=== PATIENT | male | born 1965 | race Caucasian/White ===

== ENCOUNTER 2018-04-22 10:21 | Inpatient (IN) | payer OTHER ==
[2018-04-10 11:41] VITALS: BMI 28.2
[2018-04-22] MEDS ORDERED: CEFAZOLIN 2 GM in DEXTROSE 5%-WATER - 50 ML IVPB ONE (12:45)
[2018-04-22] MEDS ORDERED: oxyCODONE HCL 10 MG SUSTAINED ACTING TABLET PO ONE (12:45)
[2018-04-22] MEDS ORDERED: VANCOMYCIN 1,000 MG in DEXTROSE 5%-WATER - 250 ML IVPB ONE (12:45)
[2018-04-22] MEDS ORDERED: CELECOXIB 200 MG CAPSULE PO ONE (12:45)
[2018-04-22] MEDS ORDERED: TRANEXAMIC ACID 1000 MG/10 ML VIAL IVPUSH ONE (12:45)
[2018-04-22] MEDS ORDERED: oxyCODONE HCL 5 MG TABLET PO PRN (14:09)
[2018-04-22] MEDS ORDERED: ONDANSETRON 4 MG/2 ML VIAL IVPUSH PRN ×2 (14:09→19:04)
[2018-04-22] MEDS ORDERED: LACTATED RINGERS SOLUTION 1,000 ML IV SCH ×2 (14:15→19:15)
[2018-04-22] MEDS ORDERED: MIDAZOLAM HCL 2 MG/2 ML SINGLE DOSE VIAL ONE ×2 (15:52→16:39)
[2018-04-22] MEDS ORDERED: PROPOFOL 20 ML ONE ×4 (16:43→18:29)
[2018-04-22] MEDS ORDERED: ceFAZolin SODIUM 1 GM VIAL ONE (16:57)
[2018-04-22] MEDS ORDERED: SODIUM CHLORIDE 0.9% P/F 10 ML VIAL IJ ONE (16:57)
[2018-04-22] MEDS ORDERED: LIDOCAINE HCL/PF 2% SDV 5ML VIAL ONE (16:58)
[2018-04-22] MEDS ORDERED: BUPIVACAINE HCL/PF 2.5 MG/ML - 30 ML VIAL IJ ONE (18:07)
[2018-04-22] MEDS ORDERED: BUPIVACAINE HCL/PF 0.25% (2.5MG/ML) 10 ML VIAL IJ ONE (18:13)
[2018-04-22] MEDS ORDERED: BENZOIN/ALOE VERA/STORAX/TOLU 58 ML BOTTLE ONE (18:15)
[2018-04-22] MEDS ORDERED: KETOROLAC TROMETHAMINE 30 MG/1 ML VIAL ONE (18:28)
[2018-04-22] MEDS ORDERED: DEXAMETHASONE SOD PHOSPHATE 4 MG/1 ML VIAL ONE (18:30)
--- NOTE | 2018-04-22 18:58 | PN ---
Progress Note (short form) - Note Progress Note: 53M s/p AMOR right hip POD #0. -Pain control: as per anaesthesia team. -DVT PPx: - Mechanical: B/L [place]'s, SCD's. - Chemical: ASA EC 81mg PO BID x 6 weeks post-op. -Incentive spirometry; pulmonary toilet. -Michela-op antibiotics: Ancef x 2 doses. -PT/OT/Rehab, OOB. -WBAT RLE. -f/u post-op trial of void. -Advance diet as tolerated. -f/u AM labs. -f/u drain output. -f/u post-op AP pelvis & right hip x-rays. -Keep dressing clean & dry. -Care per medical hospitalist team. -f/u [facility] [place] office 04/30/2018; call for appointment; [phone]. -Will follow. Blake Hernandez MD (Orthopaedic Surgery).
[2018-04-22] MEDS ORDERED: MAG HYDROX/AL HYDROX/SIMETH 30 ML UNIT-DOSE CUP PO PRN (19:04)
[2018-04-22] MEDS ORDERED: MAGNESIUM HYDROX 2400MG/30ML ORAL SUSPENSION 30 ML CUP PO PRN (19:04)
--- NOTE | 2018-04-22 19:04 | OP ---
Operative Note - Note: Operative Date: 04/22/18 Pre-Operative Diagnosis: Right hip: 1. Broken hardware (wires). 2. Trochanteric bursitis. 3. Mechanical block to hip ROM Operation: Right hip: 1. Removal of hardware (wires, cables). 2. Exostectomy. 3. Trochanteric bursectomy. 4. Debridement Findings: Right trochanteric bursal reactive tissue Right hip broken wires Right hip exostoses Post-Operative Diagnosis: Same as Pre-op Surgeon: Blake Hernandez Manager Aerospace: Larry Hernandez Anesthesiologist/SUPPLY MANAGER: Gab Dey Anesthesia: General Specimens Removed: Right hip bursa reactive tissue. Broken hardware. Exostoses Estimated Blood Loss (mls): 200 Drains & Tubes with Location: 1 x deep & 1 x superficial HemoVac Fluid Volume Replaced (mls): 800 Operative Report Dictated: Yes
[2018-04-22] MEDS ORDERED: ONDANSETRON 4 MG/2 ML VIAL IVPUSH ONE (19:08)
[2018-04-22] MEDS: SENNOSIDES/DOCUSATE COMBO (SENNA PLUS) TABLET (UD) PO SCH (21:11)
[2018-04-22] MEDS: PREGABALIN 50 MG CAPSULE PO SCH (21:12)
[2018-04-22] MEDS ORDERED: ASPIRIN 325 MG TABLET PO SCH (22:00)
[2018-04-22] MEDS: oxyCODONE HCL 5 MG TABLET PO PRN (23:01)
--- NOTE | 2018-04-22 23:31 | CONSULT ---
Consult Consult Specialty:: Hospital Medicine Referred by:: Dr. Hernandez Reason for Consultation:: Medical Management - History of Present Illness Chief Complaint: R- Hip Pain History of Present Illness: This is a pleasant 53 y/o man with a PMHx of DJD, R- HIP, s/p R- HIP POD #0. Patient had elective surgery secondary to severe DJD of R- Hip. Patient reports numbness to R- leg- toes, pain to surgical site, patient reports voiding no flatulence no BM. Patient tolerated food and PO liquids. Patient denies fever, chills, cough, SOB, CP, AP, dizziness, N/V, dysuria. - History Source History Provided By: Patient Limitations to Obtaining History: No Limitations - Past Medical History Endocrine: Yes: Diabetes Mellitus - Past Surgical History Past Surgical History: Yes: Joint Replacement - Alcohol/Substance Use Hx Alcohol Use: No History of Substance Use: reports: None - Smoking History Smoking history: Never smoked Have you smoked in the past 12 months: No - Social History Usual Living Arrangement: With Spouse ADL: Family Assistance History of Recent Travel: No Home Medications - Allergies Allergies/Adverse Reactions: Allergies Allergy/AdvReac Type Severity Reaction Status Date / Time No Known Allergies Allergy Verified 04/22/18 12:09 - Home Medications Home Medications: Ambulatory Orders Canagliflozin [Invokana] 100 mg PO DAILY 04/10/18 Ibuprofen/Diphenhydramine Cit [Advil Pm Caplet] 1 each PO HS PRN 04/10/18 Multivitamin [One Daily] 1 each PO DAILY 04/10/18 [place]-3 Fatty Acids/Fish Oil [Fish Oil 1,000 mg Capsule] 1 each PO DAILY Oxycodone HCl 15 mg PO TID 04/10/18 Pregabalin [Lyrica] 100 mg PO BID 04/10/18 Sitagliptin Phosphate [Januvia] 100 mg PO DAILY 04/10/18 Vitamin E 100 unit PO BID 04/10/18 Review of Systems - Review of Systems Constitutional: reports: No Symptoms Eyes: reports: No Symptoms HENT: reports: No Symptoms Neck: reports: No Symptoms Cardiovascular: reports: No Symptoms Respiratory: reports: No Symptoms Gastrointestinal: reports: No Symptoms Genitourinary: reports: No Symptoms Breasts: reports: No Symptoms Reported Musculoskeletal: reports: Joint Pain (R- Hip), Other (R- Hip Pain) Integumentary: reports: No Symptoms Neurological: reports: No Symptoms Endocrine: reports: No Symptoms Hematology/Lymphatic: reports: No Symptoms Psychiatric: reports: No Symptoms Physical Exam Vital Signs: Vital Signs Temperature 97.6 F 04/22/18 22:38 Pulse Rate 73 04/22/18 22:38 Respiratory Rate 18 04/22/18 22:38 Blood Pressure 115/65 04/22/18 22:38 O2 Sat by Pulse Oximetry (%) 98 04/22/18 22:38 Constitutional: Yes: Well Nourished, No Distress, Calm Eyes: Yes: WNL, Conjunctiva Clear, EOM Intact HENT: Yes: WNL, Atraumatic, Normocephalic Neck: Yes: WNL, Supple, Trachea Midline Cardiovascular: Yes: WNL, Regular Rate and Rhythm, S1, S2 Respiratory: Yes: WNL, Regular, CTA Bilaterally Gastrointestinal: Yes: WNL, Normal Bowel Sounds ...Rectal Exam: Yes: Deferred Renal/: Yes: WNL Breast(s): Yes: WNL Musculoskeletal: Yes: Joint Swelling, Other (R- hip pain) Extremities: Yes: Other (dressing dry and intact, icepack, wound vac, to R- lateral aspect of Hip) Peripheral Pulses WNL: Yes Wound/Incision: Yes: Dressing Dry and Intact, Other (icepack) Neurological: Yes: WNL, Alert, Oriented, Paresthesia ...Motor Strength: LUE, LLE, RUE Psychiatric: Yes: WNL, Alert, Oriented Assessment/Plan 53 y/o man s/p R- THR POD #0 Continue current regimen Use Incentive Spirometer Monitor CBC, BMP Continue neurovascular checks DVT ppx- mechanical only,SCDs, OOB, ambulation FEN- Fluids- PO intake adequate, Electrolytes- replete as indicated, Diet: Diabetic, Low Na Dispo: We will continue to follow the patient. Thank you for this consultative opportunity. Visit type - Emergency Visit Emergency Visit: No - New Patient This patient is new to me today: Yes Date on this admission: 04/23/18 - Critical Care Critical Care patient: No
[2018-04-23] MEDS: CEFAZOLIN 1 GM/D5W 1 GM/50 ML BAG IVPB SCH ×2 (01:03→09:53)
[2018-04-23] MEDS: sitaGLIPtin PHOSPHATE 50 MG TABLET PO SCH (07:10)
[2018-04-23 08:22] LABS: HEMATOCRIT 38.2 % (35.4-49); HEMOGLOBIN 13.1 GM/dl (11.7-16.9); MCH 29.3 pg (25.7-33.7); MCHC 34.2 g/dl (32.0-35.9); MEAN CELL VOLUME 85.7 fl (80-96); MEAN PLT VOLUME 8.5 fl (7.5-11.1); PLATELET COUNT 395 K/MM3 (134-434); RBC 4.46 M/mm3 (4.00-5.60); RDW 12.4 % (11.9-15.9); WHITE BLOOD COUNT 18.9 K/mm3 (4.0-10.8)
[2018-04-23 08:32] LABS: ANION GAP 7 MMOL/L (8-16); BLOOD UREA NITROGEN 19 mg/dl (7-18); CALCIUM 8.9 mg/dl (8.4-10.2); CHLORIDE 101 mmol/L (98-107); CO2 26 mmol/L (22-28); CREATININE 0.8 mg/dl (0.6-1.3); GLUCOSE,RANDOM 176 mg/dl (74-106); POTASSIUM 4.7 mmol/L (3.5-5.1); SODIUM 134 mmol/L (136-145)
--- NOTE | 2018-04-23 08:37 | PN ---
Progress Note (short form) - Note Progress Note: POD #1 Alert. Doing well. Pain managed well via PRN meds. Voiding spontaneously. Tolerating PO diet. Denies n/v/f/c, CP or SOB AVSS. Afebrile. Gen: alert. nad RLE: dressing c/d/i. Hemovac 70mL (sanguinous). Foot warm. DP/PT 2+. Assessment: Right hip: 1. Broken hardware (wires). 2. Trochanteric bursitis. 3. Mechanical block to hip ROM Plan: POD #1 s/p Right hip: 1. Removal of hardware (wires, cables). 2. Exostectomy. 3. Trochanteric bursectomy. 4. Debridement Pain management PRN Tylenol for fever > 100.3F PT --> FWBAT Will dc hemovac in AM if ouput is < 30 mL Reg diet
[2018-04-23] MEDS: ASPIRIN 81 MG CHEWABLE TABLETS PO SCH ×2 (09:47→21:03)
[2018-04-23] MEDS: PANTOPRAZOLE 40 MG TABLET (FP) PO SCH (09:48)
[2018-04-23] MEDS: SENNOSIDES/DOCUSATE COMBO (SENNA PLUS) TABLET (UD) PO SCH ×2 (09:48→21:03)
[2018-04-23] MEDS: PREGABALIN 50 MG CAPSULE PO SCH ×2 (09:48→21:03)
[2018-04-23] MEDS: oxyCODONE HCL 5 MG TABLET PO PRN (09:53)
[2018-04-23] MEDS ORDERED: PATIENT'S OWN MEDICATION (NON-FORMULARY) (Canagliflozin [Invokana] 100 MG) PO SCH (10:00)
--- NOTE | 2018-04-23 14:41 | OP ---
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 ANESTHESIA: Spinal with conscious sedation. ANTIBIOTICS GIVEN: Kefzol 2 g, 1 g vancomycin. PROCEDURE: Patient placed in the left decubitus position, right side up with appropriate bolsters. The right lower extremity was prepped free, draped in the routine manner with betadine scrub solution, wiped with alcohol, and DuraPrep applied. In this position, the old wound was excised completely. The dissection was taken through the subcutaneous fat to the fascia. I order to gain access to the fascia and the keep the fascial layers separate, I extended the incision by 2 cm to gain entry into virgin tissue fascia. I was able then to create a plane, which was then followed right up to the level of the midsection of the gluteus medius muscle, the fascia off of the muscles, and the trochanter. A bulbous mass was noted over the greater trochanter. This was incised longitudinally and luminous green-looking fibrinous material was excised right around the greater trochanter accordingly. This was sent to the lab and also sent for culture and sensitivity. The broken hardware, particularly the 18-gauge wires were noted and these were removed with no difficulty, but the majority of the cables and remaining wires were buried deep in both. The bone was resected around them and each cable was removed appropriately. This was a tedious procedure. Once this had been performed, the bone was appropriately trimmed off the greater trochanter and over the anterior aspect of the proximal femur in order to hopefully improve his range of flexion. Preoperative flexion was 0-40 degrees, if that, 0-30 degrees. Once we had resected the anterior bone, which appeared to be blocking flexion, his flexion was improved right up to 90 degrees. The hip itself appeared well maintained clinically. All hardware removal was checked with the lateral fluoroscopic x-ray to reveal that this was correctly removed. The bone was appropriately trimmed. The tissues were thoroughly lavaged with saline and closure was as follows in 4 layers: The trochanteric bursal tissue with number 1 Vicryl, fascia 1 Vicryl, subcutaneous 1 and 2-0 Vicryl, skin with bo. DRAINAGE: Two drains; 1/8-inch anterior and 1/8-inch subfascially posteriorly reinserted. COMPLICATIONS: None. MD HERMINIA Rowland/[id number]
--- NOTE | 2018-04-23 15:26 | PN ---
Progress Note (short form) - Note Progress Note: Anesthesiology Post-op 53 y.o. man POD#1 s/p right hip exostectomy with regional/neuraxial anesthesia. Pt. awake, feels well. He does have some pain but states that the pain meds do help. Was awaiting PT during this visit. VSS. 53 y.o. man with stable post-operative course. Continue current management.
--- NOTE | 2018-04-23 15:45 | PN ---
Physical Exam: SUBJECTIVE: Patient seen and examined oob to chair. Complaining of a pain in right inguinal area and he can feel a bulge. OBJECTIVE: Vital Signs Period Temp Pulse Resp BP Sys/Romano Pulse Ox Last 24 Hr 97.6 F-98.9 F 52-73 14-19 106-131/50-73 95-99 GENERAL: The patient is awake, alert, and fully oriented, in no acute distress. LUNGS: Breath sounds equal, clear to auscultation bilaterally, no wheezes, no crackles, no accessory muscle use. HEART: Regular rate and rhythm, S1, S2 . ABDOMEN: Soft, nontender, nondistended; on standing, small protrusion right inguinal area, +tender, not retractable EXTREMITIES: lateral right thigh surgical dressing c/d/i; legs are warm, well- perfused, 2+ DP pulses; Hemovac drain sanguinous drainage NEUROLOGICAL: Cranial nerves II through XII grossly intact. Normal speech Laboratory Results - last 24 hr 04/22/18 04/23/18 04/23/18 18:53 07:30 07:30 WBC 18.9 H RBC 4.46 Hgb 13.1 Hct 38.2 MCV 85.7 MCH 29.3 MCHC 34.2 RDW 12.4 Plt Count 395 MPV 8.5 Sodium 134 L Potassium 4.7 Chloride 101 Carbon Dioxide 26 Anion Gap 7 L BUN 19 H Creatinine 0.8 Creat Clearance w eGFR > 60 POC Glucometer 78 Random Glucose 176 H Calcium 8.9 Active Medications Generic Name Dose Route Start Last Admin Trade Name Freq PRN Reason Stop Dose Admin Al Hydroxide/Mg Hydroxide 30 ml 04/22/18 19:04 Mylanta Oral Suspension - PO Q4H PRN DYSPEPSIA Aspirin 81 mg 04/23/18 10:00 04/23/18 09:47 Asa - PO 81 mg BID LINDY Administration Lactated Ringer's 1,000 mls @ 75 mls/hr 04/22/18 14:15 Lactated Ringers Solution IV ASDIR LINDY Magnesium Hydroxide 30 ml 04/22/18 19:04 Milk Of Magnesia - PO PRN PRN CONSTIPATION Non-Formulary Medication 100 mg 04/23/18 10:00 Canagliflozin [Invokana] PO DAILY LINDY Ondansetron HCl 4 mg 04/22/18 19:04 Zofran Injection IVPUSH Q6H PRN NAUSEA Oxycodone HCl 10 mg 04/22/18 14:09 04/23/18 09:53 Roxicodone - PO 10 mg Q4H PRN Administration PAIN LEVEL 6-10 Oxycodone HCl 5 mg 04/22/18 14:09 Roxicodone - PO Q4H PRN PAIN LEVEL 1-5 Pantoprazole Sodium 40 mg 04/23/18 10:00 04/23/18 09:48 Protonix - PO 40 mg DAILY LINDY Administration Pregabalin 100 mg 04/22/18 22:00 04/23/18 09:48 Lyrica - PO 100 mg BID LINDY Administration Senna/Docusate Sodium 1 tablet 04/22/18 22:00 04/23/18 09:48 Pericolace - PO 1 tablet BID LINDY Administration Sitagliptin Phosphate 100 mg 04/23/18 07:00 04/23/18 07:10 Januvia - PO 100 mg DAILY@0700 LINDY Administration ASSESSMENT/PLAN 53 year-old male with a PMH significant for IDDM and DJD of right hip. s/p right hip revision. Right hip broken hardware/trochanteric bursitis/mechanical block to hip ROM s/p removal of hardware, exostectomy, trochanteric bursectomy and debridement --POD #1 --leukocytosis 18.9k, likely reactive, will trend; afebrile --pain presently well-managed --incentive spirometry; pulmonary toilet --arabella-op antibiotics: Ancef x 2 doses complete --PT/OT/Rehab --WBAT RLE --monitor drain output; 80ccs in Hemovac Right inguinal pain --acute onset of pain in right inguinal area; on standing, possible small hernia appreciated, does not retract --US right inguinal area done pending dictation FEN Fluids: PO intake adequate Electrolytes: replete as indicated Nutrition: diabetic diet DVT prophylaxis: ASA 81mg BID x 6 weeks, SCDs, TEDs,oob, ambulation Dispo: continues to require inpatient care. Full code. f/u [facility] [place] office 04/30/2018; call for appointment; . Visit type - Emergency Visit Emergency Visit: No - New Patient This patient is new to me today: Yes Date on this admission: 04/23/18 - Critical Care Critical Care patient: No
[2018-04-23] MEDS: INSULIN SLIDING SCALE (NOVOLOG) 1 VIAL SQ SCH ×2 (18:03→21:04)
[2018-04-23] MEDS ORDERED: INSULIN (NOVOLOG) ASPART 100 UNITS/ML 10ML VIAL ONE (20:48)
[2018-04-24] MEDS: oxyCODONE HCL 5 MG TABLET PO PRN ×2 (05:12→09:02)
[2018-04-24] MEDS: sitaGLIPtin PHOSPHATE 50 MG TABLET PO SCH (06:45)
[2018-04-24] MEDS: INSULIN SLIDING SCALE (NOVOLOG) 1 VIAL SQ SCH ×2 (07:41→11:56)
[2018-04-24 08:16] LABS: HEMATOCRIT 41.5 % (35.4-49); HEMOGLOBIN 14.1 GM/dl (11.7-16.9); MCH 28.8 pg (25.7-33.7); MCHC 34.1 g/dl (32.0-35.9); MEAN CELL VOLUME 84.3 fl (80-96); MEAN PLT VOLUME 9.2 fl (7.5-11.1); PLATELET COUNT 443 K/MM3 (134-434); RBC 4.92 M/mm3 (4.00-5.60); RDW 12.6 % (11.9-15.9); WHITE BLOOD COUNT 15.9 K/mm3 (4.0-10.8)
[2018-04-24] MEDS: ASPIRIN 81 MG CHEWABLE TABLETS PO SCH (09:02)
[2018-04-24] MEDS: PANTOPRAZOLE 40 MG TABLET (FP) PO SCH (09:02)
[2018-04-24] MEDS: SENNOSIDES/DOCUSATE COMBO (SENNA PLUS) TABLET (UD) PO SCH (09:02)
[2018-04-24] MEDS: PREGABALIN 50 MG CAPSULE PO SCH (09:03)
[2018-04-24 11:26] VITALS: BP 130/60; PULSE 68; TEMP 98.6
--- NOTE | 2018-04-24 11:47 | PN ---
Progress Note (short form) - Note Progress Note: POD #2 Alert. Doing well. Pain managed well via PRN meds. Voiding spontaneously. Tolerating PO diet. Denies n/v/f/c, CP or SOB AVSS. Afebrile. Gen: alert. nad RLE: dressing taken down--> bo intact. Hemovac minimal output. Foot warm. DP/PT 2+. Assessment: Right hip: 1. Broken hardware (wires). 2. Trochanteric bursitis. 3. Mechanical block to hip ROM Plan: POD #2 s/p Right hip: 1. Removal of hardware (wires, cables). 2. Exostectomy. 3. Trochanteric bursectomy. 4. Debridement Hemovac dc'd on rounds OOB and ambulate with PT --> WBAT Pain management PRN Ice pack DVT PPx with ASA 81mg PO BID x6 weeks & TEDs/SCD (non-op leg) Incentive Spirometer Cont care per Medicine DC planning --> f/u [facility] [place] [facility] --> call for an appointment Above plan discussed with Dr. Larry Hernandez and agrees.
[2018-04-24] MEDS ORDERED: INSULIN (NOVOLOG) ASPART 100 UNITS/ML 10ML VIAL ONE (11:59)
--- NOTE | 2018-04-24 12:19 | DS ---
Physical Exam: SUBJECTIVE: Patient seen and examined OBJECTIVE: Vital Signs Period Temp Pulse Resp BP Sys/Romano Pulse Ox Last 24 Hr 98.2 F-98.9 F 64-69 18-19 102-137/54-63 95-97 PHYSICAL EXAM GENERAL: The patient is awake, alert, and fully oriented, in no acute distress. LUNGS: Breath sounds equal, clear to auscultation bilaterally, no wheezes, no crackles, no accessory muscle use. HEART: Regular rate and rhythm, S1, S2 . ABDOMEN: Soft, nontender, nondistended; on standing, small protrusion right inguinal area, +tender, soft, moveable EXTREMITIES: lateral right thigh surgical dressing c/d/i; legs are warm, well- perfused, 2+ DP pulses; Hemovac drain sanguinous drainage NEUROLOGICAL: Cranial nerves II through XII grossly intact. Normal speech LABS Laboratory Results - last 24 hr 04/23/18 04/24/18 04/24/18 20:28 06:39 08:00 WBC 15.9 H RBC 4.92 Hgb 14.1 Hct 41.5 MCV 84.3 MCH 28.8 MCHC 34.1 RDW 12.6 Plt Count 443 H MPV 9.2 POC Glucometer 201 96 04/24/18 11:49 WBC RBC Hgb Hct MCV MCH MCHC RDW Plt Count MPV POC Glucometer 187 HOSPITAL COURSE: Date of Admission:04/22/18 Date of Discharge: 04/24/18 53 year-old male with a PMH significant for IDDM and DJD of right hip. S/p right hip revision. Right hip broken hardware/trochanteric bursitis/mechanical block to hip ROM s/p removal of hardware, exostectomy, trochanteric bursectomy and debridement --POD #1 --leukocytosis likely post-surgical reactive; afebrile --pain well-managed with PO meds --arabella-op antibiotics: Ancef x 2 doses complete --participating in PT, weight-bearing Right inguinal pain --US mildly enlarged lymph node which is soft, moveable on exam; no hernia Minutes to complete discharge: 35 Discharge Summary Condition: Improved - Instructions Diet, Activity, Other Instructions: Dr. Hernandez Discharge Instructions for Hip Replacement Post Operative Instructions Physical activity Physical Therapist will come to your home for the first 5 days. You will be set up with outpatient PT at your first post-operative visit. Use assistive devices for ambulation at all times. Weight bearing as tolerated on your surgical side. Wound care Leave your surgical dressing in place. Do not change the dressing until seen by your surgeon in the office. No baths or showers. Do not submerge your incision. Do not apply any ointments or lotions to your incision. Please call the office if your dressing is soiled/dirty or is falling off. Apply Graduated Compression Stockings (TEDS) to both lower extremities-remove daily for hygiene ONLY. Diet There are no dietary restrictions. Eat healthy, high-fiber foods. Drink 6 to 8 glasses of liquid each day. This will assist in keeping your bowels are regular. Pain management Any pain prescription medication ordered should be taken as prescribed for moderate to severe pain. Do not take additional Tylenol while taking Percocet. Posterior Hip Precautions: Do not cross the leg you had surgery on over your other leg. (Do not cross your legs.)Use an elevated toilet seat. Do not sit on low chairs or beds. Use purple pillow (abductor) when lying in bed. Take Aspirin 81 mg two times a day for a total of 6 weeks to prevent blood clots. Call Dr. Hernandez for any of the following: Severe pain not relieved by medication Fever of 101 or higher Excessive bleeding or drainage on dressing Inability to urinate If you experience chest pain or shortness of breath, please seek emergency care immediately. Please call the office at to confirm your post-op appointment for the week following surgery. Referrals: Blake Hernandez MD [Staff Physician] - Disposition: VNS/HOME HEALTH CARE - Home Medications Comprehensive Discharge Medication List: Ambulatory Orders Canagliflozin [Invokana] 100 mg PO DAILY 04/10/18 Ibuprofen/Diphenhydramine Cit [Advil Pm Caplet] 1 each PO HS PRN 04/10/18 Multivitamin [One Daily] 1 each PO DAILY 04/10/18 [place]-3 Fatty Acids/Fish Oil [Fish Oil 1,000 mg Capsule] 1 each PO DAILY Oxycodone HCl 15 mg PO TID 04/10/18 Pregabalin [Lyrica] 100 mg PO BID 04/10/18 Sitagliptin Phosphate [Januvia] 100 mg PO DAILY 04/10/18 Vitamin E 100 unit PO BID 04/10/18 This patient is new to me today: No Emergency Visit: Yes ED Registration Date: 04/22/18 Care time: The patient presented to the Emergency Department on the above date and was hospitalized for further evaluation of their emergent condition. Critical Care patient: No - Discharge Referral Referred to [facility] Med P.C.: No
--- NOTE | 2018-04-27 15:16 | PATH ---
Surgical Pathology Report Patient Name: MARC SALMON Med. Rec. #: [id number] /Age/Gender: 1965 (Age: 53) / M Account: [id number] Location: [facility] MED-SURG Taken: 04/22/2018 Received: 04/22/2018 Reported: 04/27/2018 Physicians: Blake Hrenandez M.D. Specimen(s) Received A: RIGHT HIP BURSA B: RIGHT HIP SKIN SCAR C: RIGHT HIP HARDWARE Clinical History Exostosis, broken hardware, bursitis, scar reexcision right hip Final Diagnosis A. BURSA, RIGHT HIP, EXCISION: FIBROSYNOVIAL TISSUE (CONSISTENT WITH BURSA) SHOWING MARKED ACUTE NECROTIZING INFLAMMATION AND GRANULATION TISSUE FORMATION. B. SKIN, RIGHT HIP, SCAR, EXCISION: SKIN WITH SCAR. C. HARDWARE, RIGHT HIP, REMOVAL: HARDWARE, DESCRIBED (GROSS EXAMINATION ONLY). Electronically Signed Gabrielle Mcdonough M.D. Gross Description A. Received in formalin labeled "right hip bursa," is a 4.0 x 3.2 x 1.2 cm aggregate of lombardi portions of soft tissue, consistent with bursa. Scoring Machine Operator sections are submitted in one cassette. B. Received in formalin labeled "right hip skin scar," is a 20.0 x 0.7 cm lombardi, elongated portion of skin excised to a depth of 1.8 cm. The epidermal surface displays a central, linear, well-healed scar. Scoring Machine Operator sections are submitted in one cassette. C. Received fresh labeled "right hip hardware," are 9 wong metallic portions of wire ranging from 2.7-17.5 cm in length. No soft tissue is present. No sections are submitted, gross only. 04/24/201804/24/2018
== END 2018-04-24 16:50 | disposition home health service (06) | DRG 465 ==
LOC: FM/S 11:38
PROVIDERS: ADMIT Orthopaedic Surgery Orthopaedic Surgery of the Spine; ATTEND Orthopaedic Surgery Orthopaedic Surgery of the Spine
PROC: 0MBL0ZZ Excision of Right Hip Bursa and Ligament, Open Approach (ICD-10-PCS; 2018-04-22)
PROC: 0JBL0ZZ Excision of Right Upper Leg Subcutaneous Tissue and Fascia, Open Approach (ICD-10-PCS; 2018-04-22)
PROC: 0SP90JZ Removal of Synthetic Substitute from Right Hip Joint, Open Approach (ICD-10-PCS; principal; 2018-04-22 14:00)
DX: T84.010A Broken internal right hip prosthesis, initial encounter (principal); M70.61 Trochanteric bursitis, right hip; Y83.9 Surgical procedure, unspecified as the cause of abnormal reaction of the patient, or of later complication, without mention of misadventure at the time of the procedure
CPT/HCPCS: 36415; 76882; 80048; 82962; 85027; 87070; 87075; 87102; 87116; 87205; 87206; 87210; 88300-TC; 88304-TC; 94760; 97116-GP; 97162-GP

== ENCOUNTER 2019-10-06 10:25 | Inpatient (IN) | payer OTHER ==
[2019-10-06] MEDS ORDERED: ROPIVACAINE HCL 0.5% 30ML VIAL ONE (10:55)
[2019-10-06] MEDS ORDERED: EPINEPHrine/PF 1 MG/1 ML (1:1,000) AMPULE ONE (10:55)
[2019-10-06] MEDS ORDERED: MIDAZOLAM HCL 2 MG/2 ML SINGLE DOSE VIAL ONE ×2 (10:55→12:51)
[2019-10-06 11:25] VITALS: BMI 27.4
[2019-10-06] MEDS ORDERED: VANCOMYCIN 1,000 MG in DEXTROSE 5%-WATER - 250 ML IVPB ONE (12:00)
[2019-10-06] MEDS ORDERED: CEFAZOLIN 2 GM in DEXTROSE 5%-WATER - 50 ML IVPB ONE (12:00)
[2019-10-06] MEDS ORDERED: TRANEXAMIC ACID 1000 MG/10 ML VIAL IVPUSH ONE (12:00)
--- NOTE | 2019-10-06 12:08 | HP ---
CHIEF COMPLAINT: PCP: Primary Psychiatrist: HISTORY OF PRESENT ILLNESS: Recent Events: PAST MEDICAL HISTORY: PAST SURGICAL HISTORY: Social History: Smoking: Alcohol: Drugs: Allergies No Known Allergies Allergy (Verified 10/06/19 10:53) HOME MEDICATIONS: Home Medications Medication Instructions Recorded Canagliflozin [Invokana] 100 mg PO DAILY 04/10/18 Multivitamin [One Daily] 1 each PO DAILY 04/10/18 [place]-3 Fatty Acids/Fish Oil [Fish 1 each PO DAILY 04/10/18 Oil 1,000 mg Capsule] Sitagliptin Phosphate [Januvia] 100 mg PO DAILY 04/10/18 Vitamin E 100 unit PO BID 04/10/18 Gabapentin 200 mg PO BID 10/06/19 oxyCODONE HCL [Roxicodone -] 30 mg PO Q6H PRN MDD 4 10/06/19 REVIEW OF SYSTEMS CONSTITUTIONAL: Absent: fever, chills, diaphoresis, generalized weakness, malaise, loss of appetite, weight change HEENT: Absent: rhinorrhea, nasal congestion, throat pain, throat swelling, difficulty swallowing, mouth swelling, ear pain, eye pain, visual changes CARDIOVASCULAR: Absent: chest pain, syncope, palpitations, irregular heart rate, lightheadedness , peripheral edema RESPIRATORY: Absent: cough, shortness of breath, dyspnea with exertion, orthopnea, wheezing, stridor, hemoptysis GASTROINTESTINAL: Absent: abdominal pain, abdominal distension, nausea, vomiting, diarrhea, constipation, melena, hematochezia GENITOURINARY: Absent: dysuria, frequency, urgency, hesitancy, hematuria, flank pain, genital pain MUSCULOSKELETAL: Absent: myalgia, arthralgia, joint swelling, back pain, neck pain SKIN: Absent: rash, itching, pallor HEMATOLOGIC/IMMUNOLOGIC: Absent: easy bleeding, easy bruising, lymphadenopathy, frequent infections ENDOCRINE: Absent: unexplained weight gain, unexplained weight loss, heat intolerance, cold intolerance NEUROLOGIC: Absent: headache, focal weakness or paresthesias, dizziness, unsteady gait, seizure, mental status changes, bladder or bowel incontinence PHYSICAL EXAMINATION Vital Signs - 24 hr 10/06/19 10:45 Temperature 98.2 F Pulse Rate 62 Respiratory 20 Rate Blood Pressure 127/75 GENERAL: Awake, alert, and fully oriented, in no acute distress. HEAD: Normal with no signs of trauma. EYES: Pupils equal, round and reactive to light, sclera anicteric, conjunctiva clear. LUNGS: Breath sounds equal, clear to auscultation bilaterally. No wheezes, and no crackles. No accessory muscle use. HEART: Regular rate and rhythm, normal S1 and S2 ABDOMEN: Soft, nontender, not distended MUSCULOSKELETAL: Normal range of motion at all joints. No bony deformities or tenderness. No CVA tenderness. UPPER EXTREMITIES: 2+ pulses, warm, well-perfused. No cyanosis. No clubbing. No peripheral edema. LOWER EXTREMITIES: 2+ pulses, warm, well-perfused. No calf tenderness. No peripheral edema. NEUROLOGICAL: Cranial nerves II-XII intact. Normal speech. Laboratory Results - last 24 hr 10/06/19 11:06 POC Glucometer 112 ASSESSMENT/PLAN: Cardiac --no cardiac history --Revised Cardiac Risk Index for Pre-Operative Risk: 0 points, 0.4% risk of major cardiac event Pulmonary --no pulmonary history Neurological --no neurological or neurosurgical history; no history of trauma Anesthesia --no reported problems with anesthesia ECT is a low risk procedure. The relative benefits of the planned procedure outweigh the relative risks for this patient at this time.
[2019-10-06] MEDS ORDERED: VANCOMYCIN 1,000 MG VIAL (RESTRICTED TO ID ONLY) ONE (12:16)
--- NOTE | 2019-10-06 12:20 | HP ---
HISTORY OF PRESENT ILLNESS: 54 year-old male with a PMH significant for Type II NIDDM, s/p multiple right hip surgeries and heterotopic ossification of the right hip s/p right hip debridement and bone resection with Dr. Blake Hernandez. PAST MEDICAL HISTORY: Type II NIDDM PAST SURGICAL HISTORY: Multiple right hip surgeries Left hip surgery Social History: Smoking: never Alcohol: 3-6 drinks per week Drugs: no Family history: reviewed, non-contributory Allergies No Known Allergies Allergy (Verified 10/06/19 10:53) HOME MEDICATIONS: Home Medications Medication Instructions Recorded Canagliflozin [Invokana] 100 mg PO DAILY 04/10/18 Multivitamin [One Daily] 1 each PO DAILY 04/10/18 [place]-3 Fatty Acids/Fish Oil [Fish 1 each PO DAILY 04/10/18 Oil 1,000 mg Capsule] Sitagliptin Phosphate [Januvia] 100 mg PO DAILY 04/10/18 Vitamin E 100 unit PO BID 04/10/18 Gabapentin 200 mg PO BID 10/06/19 oxyCODONE HCL [Roxicodone -] 30 mg PO Q6H PRN MDD 4 10/06/19 REVIEW OF SYSTEMS CONSTITUTIONAL: Absent: fever, chills, diaphoresis, generalized weakness, malaise, loss of appetite, weight change HEENT: Absent: rhinorrhea, nasal congestion, throat pain, throat swelling, difficulty swallowing, mouth swelling, ear pain, eye pain, visual changes CARDIOVASCULAR: Absent: chest pain, syncope, palpitations, irregular heart rate, lightheadedness , peripheral edema RESPIRATORY: Absent: cough, shortness of breath, dyspnea with exertion, orthopnea, wheezing, stridor, hemoptysis GASTROINTESTINAL: Absent: abdominal pain, abdominal distension, nausea, vomiting, diarrhea, constipation, melena, hematochezia GENITOURINARY: Absent: dysuria, frequency, urgency, hesitancy, hematuria, flank pain, genital pain MUSCULOSKELETAL: Absent: myalgia, arthralgia, joint swelling, back pain, neck pain SKIN: Absent: rash, itching, pallor HEMATOLOGIC/IMMUNOLOGIC: Absent: easy bleeding, easy bruising, lymphadenopathy, frequent infections ENDOCRINE: Absent: unexplained weight gain, unexplained weight loss, heat intolerance, cold intolerance NEUROLOGIC: Absent: headache, focal weakness or paresthesias, dizziness, unsteady gait, seizure, mental status changes, bladder or bowel incontinence PSYCHIATRIC: Absent: anxiety, depression, suicidal or homicidal ideation, hallucinations. PHYSICAL EXAMINATION Vital Signs - 24 hr 10/06/19 10:45 Temperature 98.2 F Pulse Rate 62 Respiratory 20 Rate Blood Pressure 127/75 GENERAL: Awake, alert, and fully oriented, in no acute distress. HEAD: Normal with no signs of trauma. EYES: Pupils equal, round and reactive to light, extraocular movements intact, sclera anicteric, conjunctiva clear. No lid lag. EARS, NOSE, THROAT: Ears normal, nares patent, oropharynx clear without exudates. Moist mucous membranes. NECK: Normal range of motion, supple without lymphadenopathy, JVD, or masses. LUNGS: Breath sounds equal, clear to auscultation bilaterally. No wheezes, and no crackles. No accessory muscle use. HEART: Regular rate and rhythm, normal S1 and S2 without murmur, rub or gallop. ABDOMEN: Soft, nontender, not distended, normoactive bowel sounds, no guarding, no rebound, no masses. No hepatomegaly or splenomegaly. MUSCULOSKELETAL: Normal range of motion at all joints. No bony deformities or tenderness. No CVA tenderness. UPPER EXTREMITIES: 2+ pulses, warm, well-perfused. No cyanosis. No clubbing. No peripheral edema. LOWER EXTREMITIES: 2+ pulses, warm, well-perfused. No calf tenderness. No peripheral edema. NEUROLOGICAL: Cranial nerves II-XII intact. Normal speech. Normal gait. PSYCHIATRIC: Cooperative. Good eye contact. Appropriate mood and affect. SKIN: Warm, dry, normal turgor, no rashes or lesions noted, normal capillary refill. Laboratory Results - last 24 hr 10/06/19 11:06 POC Glucometer 112 Pre op Hgb 14.3 BUN 19 Cr 0.9 Intra op Ancef 2g; Vanc 1g EBL 150cc LR 2000cc UOP 500cc ASSESSMENT/PLAN 54 year-old male with a PMH significant for Type II NIDDM, s/p multiple right hip surgeries and heterotopic ossification of the right hip s/p right hip debridement and bone resection today with Dr. Blake Hernandez. Right hip debridement and bone resection --POD #0 --perioperative antibiotics per surgery --pain management per surgery --ASA 81mg BID --protonix --bowel regimen --incentive spirometry --Hemovac drain, monitor output Type II NIDDM --Novolog sliding scale coverage FEN Fluids: LR@125mL/hr Electrolytes: replete as indicated Nutrition: regular diet DVT prophylaxis: OOB, ambulation, SCDs, TEDs, ASA 81mg BID Physical therapy Dispo: continues to require inpatient care. Full code. Visit type - Emergency Visit Emergency Visit: No - New Patient This patient is new to me today: Yes Date on this admission: 10/18/19 - Critical Care Critical Care patient: No
[2019-10-06] MEDS ORDERED: PROPOFOL 20 ML ONE ×3 (12:51→15:37)
[2019-10-06] MEDS ORDERED: SUCCINYLCHOLINE CHLORIDE 200 MG/10 ML SYRINGE ONE (12:51)
[2019-10-06] MEDS ORDERED: HEPARIN NA (PORCINE) 5,000 UNITS/ML 1ML VIAL ONE (13:56)
[2019-10-06] MEDS ORDERED: EPHEDRINE SULFATE/0.9% NACL/PF 50 MG/10 ML SYRINGE NR ONE ×2 (13:57→15:11)
[2019-10-06] MEDS ORDERED: oxyCODONE HCL 5 MG TABLET PO PRN (14:46)
[2019-10-06] MEDS ORDERED: traMADol HCL 50 MG TABLET PO PRN (14:46)
[2019-10-06] MEDS ORDERED: MAG HYDROX/AL HYDROX/SIMETH 30 ML UNIT-DOSE CUP PO PRN (16:36)
[2019-10-06] MEDS ORDERED: MAGNESIUM HYDROX 2400MG/30ML ORAL SUSPENSION 30 ML CUP PO PRN (16:36)
[2019-10-06] MEDS ORDERED: ONDANSETRON 4 MG/2 ML VIAL IVPUSH PRN (16:36)
[2019-10-06] MEDS ORDERED: LACTATED RINGERS SOLUTION 1,000 ML IV SCH (16:45)
--- NOTE | 2019-10-06 16:45 | OP ---
Operative Note - Note: Operative Date: 10/06/19 Pre-Operative Diagnosis: hetertopic ossification Operation: s/p right hip debridment/resection of bone Surgeon: Blake Hernandez Senior Electrical Project Manager: Mary Perdue Anesthesiologist/SENIOR CASE MANAGER: Robert Mcdonald Anesthesia: Spinal Estimated Blood Loss (mls): 150 Drains, Volume Out (mls): 150 (mcknight) Fluid Volume Replaced (mls): 2,000 Operative Report Dictated: Yes
[2019-10-06] MEDS ORDERED: ACETAMINOPHEN 325 MG TABLET (FP) ONE (17:03)
[2019-10-06] MEDS ORDERED: ONDANSETRON 4 MG/2 ML VIAL ONE (17:11)
[2019-10-06] MEDS ORDERED: oxyCODONE HCL 5 MG TABLET ONE (17:12)
[2019-10-06] MEDS: oxyCODONE HCL 5 MG TABLET PO PRN ×2 (19:51→23:21)
[2019-10-06] MEDS: ACETAMINOPHEN 325 MG TABLET (FP) PO SCH (20:02)
[2019-10-06] MEDS: SENNOSIDES/DOCUSATE COMBO (SENNA PLUS) TABLET (UD) PO SCH (21:12)
[2019-10-06] MEDS: ASPIRIN 81 MG CHEWABLE TABLETS PO SCH (21:12)
[2019-10-06] MEDS: GABAPENTIN 100 MG CAPSULE PO SCH (21:13)
[2019-10-06] MEDS: CEFAZOLIN 1 GM/D5W 1 GM/50 ML BAG IVPB SCH (23:21)
[2019-10-07] MEDS: INSULIN SLIDING SCALE (NOVOLOG) 1 VIAL SQ SCH ×5 (01:23→21:31)
[2019-10-07] MEDS: ACETAMINOPHEN 325 MG TABLET (FP) PO SCH ×4 (02:26→21:26)
[2019-10-07] MEDS: oxyCODONE HCL 5 MG TABLET PO PRN ×6 (02:26→22:36)
[2019-10-07] MEDS ORDERED: PATIENT'S OWN MEDICATION (NON-FORMULARY) (Canagliflozin [Invokana] 100 MG) PO SCH (07:00)
[2019-10-07] MEDS: CEFAZOLIN 1 GM/D5W 1 GM/50 ML BAG IVPB SCH (07:05)
[2019-10-07 07:35] LABS: HEMATOCRIT 32.5 % (35.4-49); HEMOGLOBIN 10.7 GM/dl (11.7-16.9); MCH 25.4 pg (25.7-33.7); MCHC 32.8 g/dl (32.0-35.9); MEAN CELL VOLUME 77.3 fl (80-96); MEAN PLT VOLUME 8.3 fl (7.5-11.1); PLATELET COUNT 370 K/MM3 (134-434); RBC 4.21 M/mm3 (4.00-5.60); RDW 14.6 % (11.9-15.9); WHITE BLOOD COUNT 10.8 K/mm3 (4.0-10.8)
[2019-10-07 07:41] LABS: CALCIUM 8.2 mg/dl (8.5-10); CREATININE 0.7 mg/dl (0.55-1.3); MAGNESIUM 1.8 mg/dL (1.8-2.4)
[2019-10-07] MEDS ORDERED: KETOROLAC TROMETHAMINE 15 MG/ML VIAL IVPUSH PRN (08:09)
--- NOTE | 2019-10-07 08:12 | OP ---
DATE OF OPERATION: DATE OF DICTATION: SURGEON: Blake Hernandez MD PYTHON DJANGO DEVELOPER: BEN Garcia PREOPERATIVE DIAGNOSIS: Possible loose total hip arthroplasty with associated heterotopic ossification of the proximal femur. POSTOPERATIVE DIAGNOSIS: Heterotopic ossification of femur. OPERATION PERFORMED: 1. Scar revision. 2. Extensive proximal femoral resection, much like a wide resection, of an osteosarcoma bone tumor. 3. Arthrotomy of right hip and inspection of component implants. 4. Complex wound closure, right hip, 30 cm. ANESTHESIA: Conscious sedation with spinal anesthesia. ANTIBIOTICS GIVEN: Kefzol 2 g, vancomycin 1 g, tranexamic acid 1 g at the beginning of the procedure, and then tranexamic acid 1 g at the end of the procedure. DESCRIPTION OF PROCEDURE: The patient was correctly identified and brought to the operating room, placed supine on the operating table in the lateral decubitus position, right side up. A free drape - after cleansing the skin with Betadine scrub solution, wiped off with alcohol and DuraPrep - applied. A time-out was called. Imaging was available for intraoperative evaluation. In the position as noted, a liberal excision of the scar was performed. This was hyperpigmented tissue complicating a previously seated metal articulating construct in his right hip. The polyethylene and ceramic heads had been changed, that is revised from metal-metal to ceramic head and polyethylene cup. 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 After opening the subcutaneous tissues: All the tissues were adherent. The fascia was adherent to the underlying musculature. This was using an osteotome and sharp dissection to create the normal planes. A Charnley retractor was able to be seated appropriately. With digital palpation - after freeing the fascia extensively anteriorly but obviously taking care not to impinge on the neurovascular bundles - the greater trochanter was identified. After resection of very thickened fibroid tissue (all sent to the lab), all the fibrotic tissue which appeared to be stained with metallosis was sent to the lab for only histopathology but . The question is whether to send tissue to the metallosis lab of Dr. Aubrey Dallas in [place], who is an expert on metallosis; this will be decided with the pathologist. All tissues were sent to the Pathology Department. I exposed the entire femur proximally, subperiosteal dissected hard thickened tissue and encountered an exostosis of new born formation growing off the anterior aspect of the femur, and this was part of his major complaint of a bony block deflection which was preoperatively evaluated with a range of flexion of 0 to 30 degrees. I used an oscillating saw and rongeurs to resect a large amount of bone, combined with a sleeve of thick fibrous tissue over this, and was easily able to flex the hip beyond 90 degrees after this. An arthrotomy was performed of the hip joint itself to expose the actual articulation. The femoral stem was carefully inspected, as well as the articulation, and I elected to leave this well alone. These were fresh articulating components placed about a year ago. There appeared to be no wear of any components and this was not major component of this operation, the major component of this operation being biological not mechanical in terms of the hip replacement. The massive heterotopic ossification with a wide resection of tissue around it. This measured at least 10 to 15 cm, much donnell to a wide resection of an osteosarcoma of bone. The tissue bed was thoroughly debrided. All hemostasis achieved as best we could. We used CellSaver blood. Once this had been performed and we were happy with the improved range of motion and all the heterotopic as well as abnormal diseased tissue, not only bone but proximal soft tissue around the entire envelope of the femur, the tissues were closed as follows: The vastus lateralis was reattached to the back part of the trochanter with 2-0 FiberWire, the fascia with 2-0 FiberWire and 1 Vicryl subcutaneous, 1 and 2-0 Vicryl in 4 layers, thus completing a complex wound closure. A Hemovac was placed subfascially x1. The skin was closed with bo. A light dressing was applied. The patient tolerated the procedure well. Postop x-rays revealed excellent seated implants. No complications. MD HERMINIA Rowland/[id number]
--- NOTE | 2019-10-07 08:28 | PN ---
Physical Exam: SUBJECTIVE: Patient seen and examined OBJECTIVE: Vital Signs Period Temp Pulse Resp BP Sys/Romano Pulse Ox Last 24 Hr 97.8 F-98.7 F 62-88 14-20 107-140/54-75 96-100 GEN: A&0x3, NAD Right hip: dressing c/d/i. Soft, no evidence of hematoma. LE: no calf tenderness or swelling noted b/l. SCDs/ TEDS in place. b/l: 5/5 dorsi/plantar flexion b/l Laboratory Results - last 24 hr 10/06/19 10/06/19 10/06/19 11:06 17:16 21:07 WBC RBC Hgb Hct MCV MCH MCHC RDW Plt Count MPV Sodium Potassium Chloride Carbon Dioxide Anion Gap BUN Creatinine Est GFR (CKD-EPI)AfAm Est GFR (CKD-EPI)NonAf POC Glucometer 112 98 139 Random Glucose Calcium Magnesium 10/07/19 10/07/19 10/07/19 06:36 06:36 06:52 WBC 10.8 RBC 4.21 Hgb 10.7 L Hct 32.5 L D MCV 77.3 L MCH 25.4 L D MCHC 32.8 RDW 14.6 D Plt Count 370 MPV 8.3 Sodium 135 L Potassium 4.0 Chloride 104 Carbon Dioxide 26 Anion Gap 5 L BUN 11.0 Creatinine 0.7 Est GFR (CKD-EPI)AfAm 125.75 Est GFR (CKD-EPI)NonAf 108.50 POC Glucometer 107 Random Glucose 126 H Calcium 8.2 L Magnesium 1.8 Active Medications Generic Name Dose Route Start Last Admin Trade Name Freq PRN Reason Stop Dose Admin Acetaminophen 650 mg 10/06/19 15:00 10/07/19 02:26 Tylenol - PO 10/09/19 14:59 650 mg Q6H LINDY Administration Al Hydroxide/Mg Hydroxide 30 ml 10/06/19 16:36 Mylanta Oral Suspension - PO Q4H PRN DYSPEPSIA Aspirin 81 mg 10/06/19 22:00 10/06/19 21:12 Asa - PO 81 mg BID LINDY Administration Gabapentin 200 mg 10/06/19 22:00 10/06/19 21:13 Neurontin - PO 200 mg BID LINDY Administration Insulin Aspart 1 vial 10/06/19 22:00 10/07/19 07:02 Novolog Vial Sliding Scale - SQ Not Given ACHS [facility] Protocol Ketorolac Tromethamine 15 mg 10/07/19 08:09 Toradol Injection - IVPUSH 10/12/19 09:59 BID PRN PAIN LEVEL 1-5 Magnesium Hydroxide 30 ml 10/06/19 16:36 Milk Of Magnesia - PO PRN PRN CONSTIPATION Multivitamins/Minerals/Vitamin C 1 tab 10/07/19 10:00 Tab-A-Vit - PO DAILY LINDY Ondansetron HCl 4 mg 10/06/19 16:36 Zofran Injection IVPUSH Q6H PRN NAUSEA Oxycodone HCl 5 mg 10/06/19 14:46 Roxicodone - PO Q3H PRN PAIN LEVEL 1-5 Oxycodone HCl 10 mg 10/06/19 14:46 10/07/19 02:26 Roxicodone - PO 10 mg Q3H PRN Administration PAIN LEVEL 6-10 Pantoprazole Sodium 40 mg 10/07/19 10:00 Protonix - PO DAILY [facility] Senna/Docusate Sodium 2 tablet 10/06/19 22:00 10/06/19 21:12 Pericolace - PO 2 tablet BID [facility] Administration Tramadol HCl 50 mg 10/06/19 14:46 10/06/19 18:00 Ultram - PO 50 mg Q3H PRN Administration PAIN LEVEL 1 - 3 ASSESSMENT/PLAN: 54 year-old male with a PMH significant for Type II NIDDM, s/p multiple right hip surgeries and heterotopic ossification of the right hip s/p right hip debridement and bone resection today with Dr. Blake Hernandez. Right hip debridement and bone resection --POD #1 --perioperative antibiotics complete --pain management per surgery --ASA 81mg BID --protonix --bowel regimen --incentive spirometry --Hemovac drain, monitor output Type II NIDDM --Novolog sliding scale coverage FEN Fluids: PO intake adequate Electrolytes: replete as indicated Nutrition: regular diet DVT prophylaxis: OOB, ambulation, SCDs, TEDs, ASA 81mg BID Physical therapy Dispo: continues to require inpatient care. Full code. Visit type - Emergency Visit Emergency Visit: No - New Patient This patient is new to me today: No - Critical Care Critical Care patient: No
[2019-10-07] MEDS: MULTIVITAMINS (DAILY MVI) TABLET (FP) PO SCH (09:21)
[2019-10-07] MEDS: GABAPENTIN 100 MG CAPSULE PO SCH ×2 (09:21→21:27)
[2019-10-07] MEDS: SENNOSIDES/DOCUSATE COMBO (SENNA PLUS) TABLET (UD) PO SCH ×2 (09:21→21:26)
[2019-10-07] MEDS: PANTOPRAZOLE 40 MG TABLET PO SCH (09:21)
[2019-10-07] MEDS: ASPIRIN 81 MG CHEWABLE TABLETS PO SCH ×2 (09:21→21:26)
--- NOTE | 2019-10-07 09:50 | PN ---
Progress Note (short form) - Note Progress Note: POD#1 PT states that he is having pain this am. Usually takes 15mg oxycodone BID prn. Vital Signs Period Temp Pulse Resp BP Sys/Romano Pulse Ox Last 24 Hr 97.8 F-98.7 F 62-88 14-20 107-140/54-75 96-100 Hemovac: 20/50ml hemovac serosangrenous GEN: A&0x3, NAD Right hip: dressing c/d/i. Soft, no evidence of hematoma. LE: no calf tenderness or swelling noted b/l. SCDs/ TEDS in place. b/l: 5/5 dorsi/plantar flexion b/l CBC, BMP 10/07/19 06:36 10/07/19 06:36 A/p: 54 yo male s/p right hip bone resection/debrdement Pain management with oxycodone as needed, added toradol prn Oob/ambulate. DVT with aspiring 81 mg bid, teds/scds Diet as tolerated Stool softners to avoid constipation D/w Dr. Zuniga
--- NOTE | 2019-10-07 11:32 | PN ---
Progress Note (short form) - Note Progress Note: POD #1 s/p R hip revision under spinal. Doing well once oral pain Rx changed to baseline home pain medicine with breakthrough medications. Patient sleepy. Questions answered.
[2019-10-08] MEDS: oxyCODONE HCL 5 MG TABLET PO PRN (03:56)
[2019-10-08] MEDS: ACETAMINOPHEN 325 MG TABLET (FP) PO SCH ×2 (03:57→09:05)
[2019-10-08 06:23] VITALS: BP 111/56; PULSE 68; TEMP 98.2
[2019-10-08] MEDS: INSULIN SLIDING SCALE (NOVOLOG) 1 VIAL SQ SCH ×2 (06:38→11:05)
--- NOTE | 2019-10-08 07:27 | SURG ---
Surgery Dice Spotter Note Dice Spotter: Mary Perdue PA-C Date of Service: 10/06/19 Diagnosis: hetertopic ossification Procedure: s/p right hip debridment/resection of bone I was present for the entirety of the operative procedure. For further detail, please refer to operative report. Visit type - Case Type Case Type: Scheduled - Emergency Emergency Visit: No - New patient This patient is new to me today: Yes Date on this admission: 10/08/19
--- NOTE | 2019-10-08 07:33 | PN ---
Progress Note (short form) - Note Progress Note: ORTHOPAEDIC SURGERY POD #2 s/p right hip debridment/resection of bone (hetertopic ossification) No acute events per RN notes. Alert. Sitting in chair at bedside with legs in extension. He is getting oob and ambulating with PT Voiding spontaneously. Tolerating PO diet. Denies n/v/f/c, CP, SOB or GOMEZ. Last Vital Signs Temp Pulse Resp BP Pulse Ox 98.2 F 68 18 111/56 L 95 10/08/19 05:00 10/08/19 05:00 10/08/19 05:00 10/08/19 05:00 10/08/19 05:00 CBC, BMP 10/08/19 07:00 10/07/19 06:36 GEN: alert. nad Right Hip/LE: dressing c/d/i. no evidence of hematoma. Hemovac 45 mL (removed on rounds). All compartments soft. SCDs bilat Problem List - Problems (1) Heterotopic ossification of bone Assessment/Plan: POD #2 Continue DVT ppx OOB and ambulate with PT DVT ppx with ASA 81mg bid x 6 weeks, RIDGE/SCDs Cleared for DC home today Above plan discussed with Dr. Blake Hernandez and agrees. Code(s): M89.8X9 - OTHER SPECIFIED DISORDERS OF BONE, UNSPECIFIED SITE
[2019-10-08 07:44] LABS: HEMATOCRIT 33.9 % (35.4-49); HEMOGLOBIN 11.1 GM/dl (11.7-16.9); MCH 25.1 pg (25.7-33.7); MCHC 32.8 g/dl (32.0-35.9); MEAN CELL VOLUME 76.4 fl (80-96); MEAN PLT VOLUME 8.5 fl (7.5-11.1); PLATELET COUNT 410 K/MM3 (134-434); RBC 4.44 M/mm3 (4.00-5.60); RDW 14.7 % (11.9-15.9); WHITE BLOOD COUNT 11.8 K/mm3 (4.0-10.8)
--- NOTE | 2019-10-08 08:54 | DS ---
"Physical Exam: SUBJECTIVE: Patient seen and examined OBJECTIVE: Vital Signs Period Temp Pulse Resp BP Sys/Romano Pulse Ox Last 24 Hr 97.9 F-99.5 F 68-81 17-18 94-122/45-56 94-98 PHYSICAL EXAM GENERAL: The patient is awake, alert, and fully oriented, in no acute distress. HEAD: Normal with no signs of trauma. EYES: PERRL, extraocular movements intact, sclera anicteric, conjunctiva clear. ENT: Ears normal, nares patent, oropharynx clear without exudates, moist mucous membranes. NECK: Trachea midline, full range of motion, supple. LUNGS: Breath sounds equal, clear to auscultation bilaterally, no wheezes, no crackles, no accessory muscle use. HEART: Regular rate and rhythm, S1, S2 without murmur, rub or gallop. ABDOMEN: Soft, nontender, nondistended, normoactive bowel sounds, no guarding, no rebound, no hepatosplenomegaly, no masses. EXTREMITIES: 2+ pulses, warm, well-perfused, no edema. NEUROLOGICAL: Cranial nerves II through XII grossly intact. Normal speech, gait not observed. PSYCH: Normal mood, normal affect. SKIN: Warm, dry, normal turgor, no rashes or lesions noted. LABS Laboratory Results - last 24 hr 10/07/19 10/07/19 10/07/19 11:34 16:51 21:30 WBC RBC Hgb Hct MCV MCH MCHC RDW Plt Count MPV POC Glucometer 134 147 83 10/08/19 10/08/19 06:01 07:00 WBC 11.8 H RBC 4.44 Hgb 11.1 L Hct 33.9 L MCV 76.4 L MCH 25.1 L MCHC 32.8 RDW 14.7 Plt Count 410 MPV 8.5 POC Glucometer 116 HOSPITAL COURSE: Date of Admission:10/06/19 Date of Discharge: 10/08/19 54 year-old male with a PMH significant for Type II NIDDM, s/p multiple right hip surgeries and heterotopic ossification of the right hip s/p right hip debridement and bone resection with Dr. Blake Hernandez. Uncomplicated post-operative course. Perioperative antibiotics complete. Pain was well-managed with PO meds. Hemovac drain pulled. Voiding freely. Tolerating regular diet. Continue DVT prophylaxis with ASA 81mg BID x 6 weeks. ISTOP The Drug Utilization Report below displays all of the controlled substance prescriptions, if any, that your patient has filled in the last twelve months. The information displayed on this report is compiled from pharmacy submissions to the Department, and accurately reflects the information as submitted by the pharmacies. This report was requested by: Magnolia Cottrell | Reference #: [id number] Others' Prescriptions Patient Name: Julio Taylor Date: 1965 Address: [address] [place] [address] [address] [address] Sex: Male Rx Written Rx Dispensed Drug Quantity Days Supply Prescriber Name 09/02/2019 09/18/2019 oxycodone hcl 30 mg tablet 120 30 Shein, Blake Lim MD 09/02/2019 09/18/2019 zolpidem tartrate 10 mg tablet 30 30 Shein, Blake Lim MD 09/02/2019 09/08/2019 lyrica 100 mg capsule 90 30 Shein, Blake Lim MD 08/05/2019 08/20/2019 oxycodone hcl 30 mg tablet 120 30 Shein, Blake Lim MD 08/05/2019 08/20/2019 zolpidem tartrate 10 mg tablet 30 30 Shein, Blake Lim MD 08/05/2019 08/05/2019 lyrica 100 mg capsule 90 30 Shein, Blake Lim MD 07/08/2019 07/22/2019 oxycodone hcl 30 mg tablet 120 30 SheinBlake MS, MD 07/08/2019 07/16/2019 zolpidem tartrate 10 mg tablet 30 30 SheinBlake MS, MD 07/08/2019 07/09/2019 lyrica 100 mg capsule 90 30 SheinBlake MS, MD 06/21/2019 06/21/2019 oxycodone hcl 30 mg tablet 120 30 Shein, Blake Lim MD 06/10/2019 06/11/2019 zolpidem tartrate 10 mg tablet 30 30 Shein, Blake Lim MD 06/10/2019 06/11/2019 lyrica 100 mg capsule 90 30 Shein, Blake Lim MD 05/13/2019 05/21/2019 temazepam 30 mg capsule 30 30 SheinBlake MS, MD 05/13/2019 05/21/2019 oxycodone hcl 30 mg tablet 120 30 Shein, Blake Lim MD 05/13/2019 05/14/2019 zolpidem tartrate 10 mg tablet 30 30 Shein, Blake Lim MD 05/13/2019 05/13/2019 pregabalin 100 mg capsule 90 30 Shein, Blake Lim MD 04/08/2019 04/22/2019 oxycodone hcl 30 mg tablet 120 30 Shein, Blake Lim MD 04/08/2019 04/16/2019 pregabalin 100 mg capsule 60 30 Shein, Blake Lim MD 04/08/2019 04/16/2019 temazepam 30 mg capsule 30 30 Shein, Blake Lim MD 04/08/2019 04/12/2019 zolpidem tartrate 10 mg tablet 30 30 Shein, Blake Lim MD 03/03/2019 03/22/2019 oxycodone hcl 30 mg tablet 120 30 Shein, Blake Lim MD 03/03/2019 03/17/2019 temazepam 30 mg capsule 30 30 Shein, Blake Lim MD 03/03/2019 03/17/2019 lyrica 100 mg capsule 60 30 Shein, Blake Lim MD 02/11/2019 03/11/2019 zolpidem tartrate 10 mg tablet 30 30 Shein, Blake Lim MD 02/11/2019 02/12/2019 oxycodone hcl 30 mg tablet 120 30 Shein, Blake Lim MD 02/11/2019 02/12/2019 temazepam 30 mg capsule 30 30 Shein, Blake Lim MD 02/11/2019 02/12/2019 lyrica 100 mg capsule 60 30 Shein, Blake Lim MD 01/07/2019 02/09/2019 zolpidem tartrate 10 mg tablet 30 30 Shein, Blake Lim MD 01/07/2019 01/07/2019 temazepam 30 mg capsule 30 30 Shein, Blake Lim MD 01/07/2019 01/07/2019 oxycodone hcl 30 mg tablet 120 30 Shein, Blake Lim MD 01/07/2019 01/07/2019 lyrica 100 mg capsule 60 30 Shein, Blake Lim MD 12/09/2018 12/10/2018 lyrica 100 mg capsule 60 30 Belkys Costa (RPA- C) 12/09/2018 12/09/2018 oxycodone hcl 30 mg tablet 120 30 Belkys Costa (RPA-C) 12/09/2018 12/09/2018 temazepam 30 mg capsule 30 30 Belkys Costa ( RPA-C) 12/09/2018 12/09/2018 zolpidem tartrate 10 mg tablet 30 30 Belkys Costa (RPA-C) 11/05/2018 11/10/2018 lyrica 100 mg capsule 60 30 SheBlake cazares MS, MD 11/05/2018 11/10/2018 oxycodone hcl 30 mg tablet 120 30 Shein, Blake Lim MD 11/05/2018 11/10/2018 temazepam 30 mg capsule 30 30 SheinBlake MS, MD 10/09/2018 10/10/2018 lyrica 100 mg capsule 60 30 Shein, Blake Lim MD 10/09/2018 10/10/2018 temazepam 30 mg capsule 30 30 SheinBlake MS, MD 10/09/2018 10/10/2018 oxycodone hcl 30 mg tablet 120 30 SheinBlake MS, MD 10/09/2018 10/09/2018 zolpidem tartrate 10 mg tablet 30 30 Blake Hernandez MS, MD Minutes to complete discharge: 35 Discharge Summary Problems reviewed: Yes Reason For Visit: OSTEOARTHRITIS RIGHT HIP Condition: Improved - Instructions Diet, Activity, Other Instructions: Dr. Hernandez Discharge Instructions for Hip Replacement Post Operative Instructions Physical activity Physical Therapist will come to your home for the first 5 days. You will be set up with outpatient PT at your first post-operative visit. Use assistive devices for ambulation at all times. Weight bearing as tolerated on your surgical side. Wound care Leave your surgical dressing in place. Do not change the dressing until seen by your surgeon in the office. No baths or showers. Do not submerge your incision. Do not apply any ointments or lotions to your incision. Please call the office if your dressing is soiled/dirty or is falling off. Apply Graduated Compression Stockings (TEDS) to both lower extremities-remove daily for hygiene ONLY. Diet There are no dietary restrictions. Eat healthy, high-fiber foods. Drink 6 to 8 glasses of liquid each day. This will assist in keeping your bowels are regular. Pain management Any pain prescription medication ordered should be taken as prescribed for moderate to severe pain. Do not take additional Tylenol while taking Percocet. Posterior Hip Precautions: Do not cross the leg you had surgery on over your other leg. (Do not cross your legs.)Use an elevated toilet seat. Do not sit on low chairs or beds. Use purple pillow (abductor) when lying in bed. Take Aspirin 81 mg two times a day for a total of 6 weeks to prevent blood clots. Call Dr. Hernandez for any of the following: Severe pain not relieved by medication Fever of 101 or higher Excessive bleeding or drainage on dressing Inability to urinate If you experience chest pain or shortness of breath, please seek emergency care immediately. Please call the office at to confirm your post-op appointment for the week following surgery. This report was requested by: Mary Perdue | Reference #: [id number] 09/18/2019 oxycodone hcl 30 mg / 120 tablets / Blake Hernandez MS, MD 09/18/2019 zolpidem tartrate 10 / 30 tablets / Blake Hernandez MS, MD 09/08/2019 lyrica 100 mg / 90 capsules / Blake Hernandez MS, MD Referrals: Blake Hernandez MD [Staff Physician] - Disposition: VNS/HOME HEALTH CARE - Home Medications Comprehensive Discharge Medication List: Ambulatory Orders RX: Canagliflozin [Invokana] 100 mg PO DAILY 04/10/18 RX: Multivitamin [One Daily] 1 each PO DAILY 04/10/18 RX: [place]-3 Fatty Acids/Fish Oil [Fish Oil 1,000 mg Capsule] 1 each PO DAILY 06/18 RX: Sitagliptin Phosphate [Januvia] 100 mg PO DAILY 04/10/18 RX: Vitamin E 100 unit PO BID 04/10/18 RX: Gabapentin 200 mg PO BID 10/06/19 RX: oxyCODONE HCL [Roxicodone -] 30 mg PO Q6H PRN MDD 4 10/06/19 Prescription Drug Monitoring Program (I-STOP) results: I-STOP reviewed and no issues identified This patient is new to me today: No Emergency Visit: Yes ED Registration Date: 10/06/19 Care time: The patient presented to the Emergency Department on the above date and was hospitalized for further evaluation of their emergent condition. Critical Care patient: No - Discharge Referral Referred to [facility] No"
[2019-10-08] MEDS: SENNOSIDES/DOCUSATE COMBO (SENNA PLUS) TABLET (UD) PO SCH (10:05)
[2019-10-08] MEDS: MULTIVITAMINS (DAILY MVI) TABLET (FP) PO SCH (10:05)
[2019-10-08] MEDS: PANTOPRAZOLE 40 MG TABLET PO SCH (10:05)
[2019-10-08] MEDS: GABAPENTIN 100 MG CAPSULE PO SCH (10:05)
[2019-10-08] MEDS: ASPIRIN 81 MG CHEWABLE TABLETS PO SCH (10:15)
--- NOTE | 2019-10-11 11:47 | PATH ---
Surgical Pathology Report Patient Name: MARC SALMON Med. Rec. #: [id number] /Age/Gender: 1965 (Age: 54) / M Account: [id number] Location: [facility] MED-[facility]G Taken: 10/06/2019 Received: 10/06/2019 Reported: 10/11/2019 Physicians: Melissa Rowland ACNP Specimen(s) Received A: SKIN, HIP, RIGHT, "METALLOSIS" B: HIP, RIGHT, TENSOR FASCIA LATAE C: HIP, RIGHT, TROCHANTERIC BED D: HIP, RIGHT, BONE Clinical History Heterotopic ossification right hip Final Diagnosis A. SKIN, HIP, RIGHT, "METALLOSIS", RESECTION: SKIN AND UNDERLYING SUBCUTANEOUS TISSUE WITH MILD PATCHY SUPERFICIAL DERMAL CHRONIC INFLAMMATORY INFILTRATE. NO HISTOLOGIC EVIDENCE OF METALLOSIS IDENTIFIED. B. HIP, RIGHT, TENSOR FASCIA LATAE, RESECTION: DENSE FIBROUS TISSUE WITH PATCHY MIXED ACUTE AND CHRONIC INFLAMMATORY INFILTRATE INCLUDING NEUTROPHILS (>10 NEUTROPHILS/HPF IN 10 HPF), SCATTERED LYMPHOCYTES, HISTIOCYTES, PATCHY DEPOSITION OF HEMOSIDERIN-LADEN MACROPHAGES, AND FOCAL AREAS OF POLARIZABLE FOREIGN BODY MATERIAL (POLYETHYLENE MACROPARTICLES) WITH ASSOCIATED GIANT CELL REACTION. HETEROTOPIC OSSIFICATION PRESENT. NO HISTOLOGIC EVIDENCE OF METALLOSIS IDENTIFIED. NO DIAGNOSTIC FEATURES OF ASEPTIC, LYMPHOCYTE-DOMINATED VASCULITIS-ASSOCIATED LESION (ALVAL) IDENTIFIED.SEE COMMENT. C. HIP, RIGHT, TROCHANTERIC BED, RESECTION: DENSE FIBROUS TISSUE WITH PATCHY MIXED ACUTE AND CHRONIC INFLAMMATORY INFILTRATE INCLUDING HEMOSIDERIN LADEN MACROPHAGES. NO HISTOLOGIC EVIDENCE OF METALLOSIS IDENTIFIED. NO DIAGNOSTIC FEATURES OF ASEPTIC, LYMPHOCYTE-DOMINATED VASCULITIS-ASSOCIATED LESION (ALVAL) IDENTIFIED. SEE COMMENT. D. HIP, RIGHT, BONE, RESECTION: BONE WITH REACTIVE CHANGES. BONE MARROW WITH TRILINEAGE HEMATOPOIESIS. NO OSTEOMYELITIS IDENTIFIED. Comment: Histologic sections show patchy areas of mixed inflammatory infiltrate. In some areas, a predominant acute/neutrophilic component are present (>10 neutrophils/HPF in 10 HPF). Other areas show hemosiderin-laden macrophages, highlighted by Iron special stain. Focally there are Polarizable Birefringent foreign body material consistent with polyethylene macroparticles with associated giant cell reaction. Scattered lymphocytes, with predominant CD3+ T cells admixed with CD20+ B cells present (performed on block C). Although some sparse perivascular lymphocytic infiltrate are noted, these findings are non-specific, and not-diagnostic of ALVAL. No histologic evidence of metallosis is identified. Suggest clinical correlation. Findings relayed to Belkys PANIAGUA) from Dr. Hernandez's office, 10/11/2019. Reference: Esteban Long, Catarina Simeon, Pratibha Ramos, Saulo Parham, Natalie Wets, Aseptic Lymphocyte-Dominated Vasculitis-Associated Lesion: A Clinicopathologic Review of an Underrecognized Cause of Prosthetic Failure,[place] Journal of Clinical Pathology, Volume 134, Issue 6, August 2010, Pages [id number]. Immunohistochemical stains performed and interpreted at [facility]. Positive and negative controls (internal if applicable) show appropriate results. Electronically Signed Emily Pat M.D. Gross Description A. Received in formalin labeled "metallosis of skin right hip," is an 11.0 x 1.3 cm lombardi, elliptical, unoriented portion of an excised to depth of 1.0 cm. Stunner Animal sections are submitted in 3 cassettes. B. Received in formalin labeled "tensor fascial latae right hip" is a 4.5 x 3.8 x 2.0 cm lombardi portion of firm fibrous tissue. Stunner Animal sections are submitted in 4 cassettes. C. Received in formalin labeled "trochanteric bed right hip," are 3 lombardi portions of firm fibrous tissue ranging from 0.8 x 0.7 x 0.6 cm to 5.3 x 4.0 x 1.5 cm. Stunner Animal sections are submitted in 5 cassettes. D. Received in formalin labeled "bone right hip," is a 7.0 x 6.0 x 1.0 cm aggregate of multiple lombardi-brown portions of bone. Stunner Animal sections are submitted in 2 cassettes, following decalcification. 10/07/2019 saudi10/07/2019
== END 2019-10-08 13:04 | disposition home health service (06) | DRG 464 ==
LOC: FM/S 10:25
PROVIDERS: ADMIT Orthopaedic Surgery Orthopaedic Surgery of the Spine; ATTEND Nurse Practitioner Acute Care
PROC: 0JBL0ZZ Excision of Right Upper Leg Subcutaneous Tissue and Fascia, Open Approach (ICD-10-PCS; 2019-10-06)
PROC: 0JQL0ZZ Repair Right Upper Leg Subcutaneous Tissue and Fascia, Open Approach (ICD-10-PCS; 2019-10-06)
PROC: 0SW90JZ Revision of Synthetic Substitute in Right Hip Joint, Open Approach (ICD-10-PCS; principal; 2019-10-06 14:29)
DX: M89.8X9 Other specified disorders of bone, unspecified site (principal); T84.030A Mechanical loosening of internal right hip prosthetic joint, initial encounter; Y83.9 Surgical procedure, unspecified as the cause of abnormal reaction of the patient, or of later complication, without mention of misadventure at the time of the procedure; E11.9 Type 2 diabetes mellitus without complications
CPT/HCPCS: 36415; 73502-TC-RT-FY; 80048; 82962; 83735; 85027; 87070; 87205; 88304-TC; 88311-TC; 88341-TC; 94760; 97116-GP; 97163-GP; J1644

== ENCOUNTER 2020-03-01 11:28 | Day surgery (SDC) | payer OTHER ==
[2020-03-01 12:19] LABS: BASO % 1.4 % (0-2.0); EOS % 7.3 % (0-4.5); HEMATOCRIT 36.3 % (35.4-49); HEMOGLOBIN 11.2 GM/dL (11.7-16.9); LYMPH % 19.4 % (8-40); MCH 22.9 pg (25.7-33.7); MCHC 30.8 g/dl (32.0-35.9); MEAN CELL VOLUME 74.3 fl (80-96); MONO % 9.8 % (3.8-10.2); NEUT % 62.1 % (42.8-82.8); PLATELET COUNT 533 K/MM3 (134-434); RBC 4.88 M/mm3 (4.00-5.60); RDW 18.3 % (11.9-15.9); WHITE BLOOD COUNT 11.5 K/mm3 (4.0-10.0)
[2020-03-01 12:27] LABS: INR 1.01 (0.83-1.09); PROTHROMBIN TIME (PATIENT) 11.9 SEC (9.7-13.0)
[2020-03-01 12:30] LABS: ACTIVATED PTT 36.6 SECONDS (25.2-36.5)
[2020-03-01 12:54] LABS: ALBUMIN 3.1 g/dl (3.4-5.0); BILIRUBIN,TOTAL 0.3 mg/dL (0.2-1); BLOOD UREA NITROGEN 18.2 mg/dL (7-18); CALCIUM 7.5 mg/dL (8.5-10.1); CREATININE 0.8 mg/dL (0.55-1.3); POTASSIUM 4.7 mmol/L (3.5-5.1); TOT PROT 6.8 g/dl (6.4-8.2)
--- NOTE | 2020-03-01 13:13 | PDOC ---
History of Present Illness - General Chief Complaint: Abscess Boil Stated Complaint: SENT BY DOC Time Seen by Provider: 03/01/20 11:54 History Source: Patient Exam Limitations: No Limitations - History of Present Illness Initial Comments: 03/01/20 13:25 55yM w PMHx DM, R femur bone filing (10/06/[address] Hernandez) sent to ED by Dr Hernandez for concern for R greater trochanteric abscess requiring I&D. Pt endorses 4 weeks worsening swelling, pain, tender, warm over surgical site. Completed amoxicillin course 7d w/o relief. Denies fever/chills, n/v, intact strength/ROM/sensation to touch RLE. Past History - Medical History Allergies/Adverse Reactions: Allergies Allergy/AdvReac Type Severity Reaction Status Date / Time No Known Allergies Allergy Verified 03/01/20 11:44 Home Medications: Ambulatory Orders Canagliflozin [Invokana] 100 mg PO DAILY 04/10/18 Sitagliptin Phosphate [Januvia] 100 mg PO DAILY 04/10/18 Insulin Aspart [Novolog] 20 unit SQ HS 03/01/20 Insulin Detemir [Levemir Flextouch] 12 unit SQ TID 03/01/20 Metformin HCl [Glucophage] 500 mg PO BID 03/01/20 Anemia: No Asthma: No Cancer: No Cardiac Disorders: No CVA: No COPD: No CHF: No Dementia: No Diabetes: Yes (OVER 10 YEARS) GI Disorders: No Disorders: No HTN: No Hypercholesterolemia: No Liver Disease: No Seizures: No Thyroid Disease: No - Surgical History Abdominal Surgery: No Appendectomy: No Cardiac Surgery: No Cholecystectomy: No Lung Surgery: No Neurologic Surgery: No Orthopedic Surgery: Yes (2016 SPINAL FUSION, LAMINECTOMY PRIOR TO THAT) - Psycho-Social/Smoking History Smoking History: Never smoked Have you smoked in the past 12 months: No - Substance Abuse Hx (Audit-C & DAST Scrn) How often the patient has a drink containing alcohol: Never Score: In Men: 4 or > Positive; In Women: 3 or > Positive: 0 Screen Result (Pos requires Nsg. Audit-10AR): Negative In the last yr the pt used illegal drug/Rx for NonMed reason: No Score: Yes response is considered Positive: 0 Screen Result (Positive result requires Nsg. DAST-10): Negative Review of Systems - Review of Systems Constitutional: No: Chills, Fever HEENTM: No: Eye Pain, Nose Congestion Respiratory: No: Cough, Shortness of Breath Cardiac (ROS): No: Chest Pain, Palpitations ABD/GI: No: Abdominal Distended, Constipated, Diarrhea, Nausea, Vomiting : No: Burning, Dysuria Musculoskeletal: Yes: Joint Pain. No: Back Pain Integumentary: No: Bruising, Flushing Neurological: No: Headache, Seizure Psychiatric: No: Anxiety, Depression Endocrine: No: Intolerance to Cold, Intolerance to Heat Hematologic/Lymphatic: No: Anemia, Blood Clots *Physical Exam - Vital Signs Last Vital Signs Temp Pulse Resp BP Pulse Ox 98.5 F 77 18 132/62 98 03/01/20 11:39 03/01/20 11:39 03/01/20 11:39 03/01/20 11:39 03/01/20 11:39 - Physical Exam General Appearance: Yes: Nourished, Appropriately Dressed, Mild Distress HEENT: positive: EOMI, KAREN, Normal Voice, Hearing Grossly Normal. negative: Scleral Icterus (R), Scleral Icterus (L) Respiratory/Chest: positive: Lungs Clear, Normal Breath Sounds. negative: Chest Tender, Respiratory Distress Cardiovascular: positive: Regular Rhythm, Regular Rate, S1, S2. negative: Edema, Murmur Vascular Pulses: Dorsalis-Pedis (R): 2+, Doralis-Pedis (L): 2+ Extremity: positive: Other (R lateral femur swelling/tender/warm fluctuant mass under incision site, no discharge or bleeding) Integumentary: positive: Normal Color, Warm Neurologic: positive: Fully Oriented, Alert, Normal Mood/Affect, Normal Response, Motor Strength 5/5 (BLE full ROM, 5/5 strength), Responsive. negative: Numbness, Sensory Deficit, Confused, Disoriented ED Treatment Course - LABORATORY CBC & Chemistry Diagram: 03/01/20 12:00 03/01/20 12:00 - ADDITIONAL ORDERS Additional order review: Laboratory Results 03/01/20 03/01/20 12:00 12:00 PT with INR 11.90 INR 1.01 PTT (Actin FS) 36.6 H Sodium 136 Potassium 4.7 Chloride 101 Carbon Dioxide 29 Anion Gap 5 L BUN 18.2 H Creatinine 0.8 Est GFR (CKD-EPI)AfAm 118.20 Est GFR (CKD-EPI)NonAf 101.99 Random Glucose 246 H Calcium 7.5 L Total Bilirubin 0.3 AST 19 ALT 16 Alkaline Phosphatase 164 H Total Protein 6.8 Albumin 3.1 L 03/01/20 12:00 RBC 4.88 MCV 74.3 L MCHC 30.8 L RDW 18.3 H MPV 8.0 Neutrophils % 62.1 Lymphocytes % 19.4 Monocytes % 9.8 Eosinophils % 7.3 H Basophils % 1.4 Medical Decision Making - Medical Decision Making 03/01/20 13:46 EKG - NSR, incomplete RBBB, LAD, HR 68, QTc 431, no ST changes CXR - no acute pathology WBC 11, BG 246 --- 55yM w PMHx DM, R femur bone filing (10/06/[address] Hernandez) sent to ED by Dr Hernandez for concern for R greater trochanteric abscess requiring I&D. RLE neurovascular intact. Given [address] Hernandez, will bring to OR today Admitted m/s Dr Hernandez for R greater trochanteric abscess requiring I&D. Discharge - Discharge Information Problems reviewed: Yes Clinical Impression/Diagnosis: Abscess Condition: Good - Follow up/Referral - Patient Discharge Instructions - Post Discharge Activity
[2020-03-01] MEDS ORDERED: morphine CARPU-JECT 4 MG/1 ML DISP.SYRIN IVPUSH ONE ×2 (14:09→17:31)
--- NOTE | 2020-03-01 14:09 | EKG ---
Test Reason : Blood Pressure : / mmHG Vent. Rate : 068 BPM Atrial Rate : 068 BPM P-R Int : 162 ms QRS Dur : 092 ms QT Int : 406 ms P-R-T Axes : 058 -30 038 degrees QTc Int : 431 ms NORMAL SINUS RHYTHM POSSIBLE LEFT ATRIAL ENLARGEMENT LEFT AXIS DEVIATION INCOMPLETE RIGHT BUNDLE BRANCH BLOCK ABNORMAL ECG NO PREVIOUS ECGS AVAILABLE Confirmed by Padilla Wilder MD ([id number]) on 03/01/2020 2:09:19 PM Referred By: Confirmed By:Padilla Wilder MD
--- NOTE | 2020-03-01 14:23 | PDOC ---
Documentation entered by Cristy Thompson SCRIBE, acting as scribe for Rhianna Sands MD. Rhianna Sands MD: This documentation has been prepared by the Jay juárez Adrianna, SCRIBE, under my direction and personally reviewed by me in its entirety. I confirm that the documentation accurately reflects all work, treatment, procedures, and medical decision making performed by me. Attending Attestation - Resident Resident Name: JamesonMiguel Angel - ED Attending Attestation I have performed the following: I have examined & evaluated the patient, The case was reviewed & discussed with the resident, I agree w/resident's findings & plan, Exceptions are as noted - HPI HPI: The patient is a 55 year old male, with a significant PMH of NIDDM, s/p multiple right hip surgeries and heterotopic ossification of the right hip s/p right hip debridement and bone resection, who presents to the ED for evaluation of abscess for 4 weeks. Patient complains of a progressively worsening abscess to the right greater trochanter. He endorses pain, swelling, warmth, and tenderness to his surgical site. Patient completed a 7 day course of amoxicillin without any relief of symptoms. Patient was advised by his orthopedic surgeon to come to the ED for admission for an I&D. Denies fever, chills, nausea, vomit, chest pain, SOB, cough. Allergies: NKA, NKDA Surgical History: Spinal fusion, laminectomy, multiple right hip surgeries, right hip debridement and bone resection Social History: No toxic habits Orthopedic surgeon: Dr. Hernandez - Physicial Exam PE: General: well appearing HEENT: NCAT Extremities: +surgical scar R hip with +ttp and induration with some erythema, warm and well perfused Neuro: awake, alert, responds appropriately to questions, speech fluent, face sy mmetric, no focal deficits - Medical Decision Making 55 yo M sent by his orthopedist for admission for I+D of hip abscess in the OR, non-toxic appearing on exam. Plan: -labs -pain control as needed -IVF -NPO -pt. scheduled for the OR today This clinical encounter is taking place during a federal and state health care emergency attributable to the novel [place] Virus pandemic. The [place] of the Department of Health and Human Services has declared, pursuant to the Public Health Service Act 319F-3 (42 U.S.C. 247d-6d), that a covered persons activities related to medical countermeasures against COVID-19 will be immune from liability under Federal and State law. Discharge - Discharge Information Problems reviewed: Yes Clinical Impression/Diagnosis: Abscess Condition: Improved Disposition: HOME - Follow up/Referral - Patient Discharge Instructions - Post Discharge Activity
[2020-03-01] MEDS ORDERED: morphine SULFATE 4 MG/ML VIAL ONE (14:26)
[2020-03-01] MEDS ORDERED: GABAPENTIN 100 MG CAPSULE PO ONE (16:04)
[2020-03-01] MEDS ORDERED: GABAPENTIN 100 MG CAPSULE ONE ×2 (16:07→16:09)
[2020-03-01] MEDS ORDERED: ACETAMINOPHEN 1000 MG/100 ML VIAL (NON FORMULARY) IVPB ONE (16:30)
[2020-03-01] MEDS ORDERED: METOCLOPRAMIDE HCL INJECTION 10 MG/2 ML VIAL IVPB ONE (18:48)
[2020-03-01] MEDS ORDERED: SODIUM CHLORIDE 0.9% 500 ML INFUS.BAG IV ONE (18:50)
[2020-03-01] MEDS ORDERED: MIDAZOLAM HCL 2 MG/2 ML SINGLE DOSE VIAL ONE (19:49)
--- NOTE | 2020-03-01 20:30 | PN ---
Progress Note (short form) - Note Progress Note: Patient status post Revision THR 2014 Giancarlo Yepezdebora Problem R heterotopic ossification resected April 2018 Presents today with an Acute Abscess R greater Trochanter Admitted through the ER for I and D CoMorbidity Type 2 Diabetic 10yrs Insulin dependant with metformin for review by physician for change of meds. Rest of med history negative Allergies Nil Past Surgeries Hip Bilateral THR Lumbar spine fusion O/E Not distressed except severe tenderness over the R greater trochanter No signs of toxicity Apyrexial CVS No tachycardia Perfusing normally RESP Clear ABD Soft NEURO Fully intact RES Serology As per chart Slight rise in WCC No Lshift or toxic granulation. PLAN For I and D under [place] Perioperative antibiotics Analgesia
[2020-03-01] MEDS ORDERED: ceFAZolin SODIUM 1 GM VIAL IVPB ONE (20:50)
[2020-03-01] MEDS ORDERED: ceFAZolin SODIUM 1 GM VIAL ONE (20:55)
[2020-03-01] MEDS ORDERED: DEXAMETHASONE SOD PHOSPHATE 4 MG/1 ML VIAL ONE (21:06)
[2020-03-01] MEDS ORDERED: LACTATED RINGERS SOLUTION 1,000 ML IV SCH ×2 (21:30→22:30)
[2020-03-01] MEDS ORDERED: ONDANSETRON 4 MG/2 ML VIAL IVPUSH PRN ×2 (21:30→22:26)
[2020-03-01] MEDS: KETOROLAC TROMETHAMINE 30 MG/1 ML VIAL IVPUSH ONE ×2 (21:40→23:31)
--- NOTE | 2020-03-01 22:00 | OP ---
Operative Note - Note: Operative Date: 03/01/20 Pre-Operative Diagnosis: Draining right hip wound Operation: Incision, drainage, irrigation, debridement right hip wound Findings: Superficial wound cavity [id number] Walled off No intra-articular communication No bony communication Post-Operative Diagnosis: Same as Pre-op Surgeon: Blake Hernandez Anesthesiologist/SPOOLING OPERATOR: Lee Taylor Anesthesia: General Specimens Removed: Right hip wound specimen, tissue Estimated Blood Loss (mls): 30 Drains & Tubes with Location: 1 x superficial HemoVac Fluid Volume Replaced (mls): 1,000 Operative Report Dictated: Yes
--- NOTE | 2020-03-01 22:11 | CONSULT ---
Consultation: REQUESTING PROVIDER: Dr. Hernandez CONSULT REQUEST: We have been asked to medically evaluate this patient for DM management HISTORY OF PRESENT ILLNESS: 55 year old male with PMH of DM, R femur bone filing (10/06/[address] Hernandez) was referred to the ER by Dr Hernandez for concern for R greater trochanteric I&D for a developing abscess, after patient was found to have worsening swelling and pain in the area. Recently completed amoxicillin course 7d with no improvement in symptoms. Reports 12 hip replacements in the past with spinal surgery as well. Currently on Metformin 500mg BID, Canagliflozin 100, Januvia 100, Novolog 10mg TID, and Levemir 20mg HS at home. Began taking insulin 1 year ago, sees an help desk specialist once a year, visited a department chair 6 months ago but does not follow up regularly. Does not remember if he has had an HbA1c, but states that he sees his PCP regularly, also has an Special Needs Nanny who he saw nearly 1 year ago. REVIEW OF SYSTEMS: CONSTITUTIONAL: Absent: fever, chills, diaphoresis, generalized weakness, malaise, loss of appetite, weight change HEENT: Absent: rhinorrhea, nasal congestion, throat pain, throat swelling, difficulty swallowing, mouth swelling, ear pain, eye pain, visual changes CARDIOVASCULAR: Absent: chest pain, syncope, palpitations, irregular heart rate, lightheadedness, peripheral edema RESPIRATORY: Absent: cough, shortness of breath, dyspnea with exertion, orthopnea, wheezing, stridor, hemoptysis GASTROINTESTINAL: Absent: abdominal pain, abdominal distension, nausea, vomiting, diarrhea, constipation, melena, hematochezia GENITOURINARY: Absent: dysuria, frequency, urgency, hesitancy, hematuria, flank pain, genital pain MUSCULOSKELETAL: Absent: myalgia, arthralgia, joint swelling, back pain, neck pain SKIN: Absent: rash, itching, pallor HEMATOLOGIC/IMMUNOLOGIC: Absent: easy bleeding, easy bruising, lymphadenopathy, frequent infections ENDOCRINE: Absent: unexplained weight gain, unexplained weight loss, heat intolerance, cold intolerance NEUROLOGIC: Absent: headache, focal weakness or paresthesias, dizziness, unsteady gait, seizure, mental status changes, bladder or bowel incontinence PSYCHIATRIC: Absent: anxiety, depression, suicidal or homicidal ideation, hallucinations. PHYSICAL EXAMINATION Vital Signs - 24 hr 03/01/20 03/01/2020 11:39 13:59 16:17 Temperature 98.5 F 98.3 F Pulse Rate 77 Pulse Rate [ 67 73 Right Radial] Respiratory 18 18 Rate Blood Pressure 132/62 Blood Pressure 116/61 121/63 [Left Arm] O2 Sat by Pulse 98 97 96 Oximetry (%) 03/01/20 03/01/20 03/01/20 18:07 19:39 21:25 Temperature 97.9 F 98.3 F Pulse Rate 78 Pulse Rate [ 68 69 Right Radial] Respiratory 18 18 Rate Blood Pressure 139/77 Blood Pressure 106/54 L 106/62 [Left Arm] O2 Sat by Pulse 97 98 99 Oximetry (%) 03/01/20 03/01/20 21:40 21:55 Temperature Pulse Rate 65 73 Pulse Rate [ Right Radial] Respiratory 16 16 Rate Blood Pressure 128/74 104/59 L Blood Pressure [Left Arm] O2 Sat by Pulse 99 100 Oximetry (%) GENERAL: Awake, alert, and fully oriented, in no acute distress. HEAD: Normal with no signs of trauma. EYES: Pupils equal, round and reactive to light, extraocular movements intact, sclera anicteric, conjunctiva clear. No lid lag. EARS, NOSE, THROAT: Ears normal, nares patent, oropharynx clear without exudates. Moist mucous membranes. NECK: Normal range of motion, supple without lymphadenopathy, JVD, or masses. LUNGS: Breath sounds equal, clear to auscultation bilaterally. No wheezes, and no crackles. No accessory muscle use. HEART: Regular rate and rhythm, normal S1 and S2 without murmur, rub or gallop. ABDOMEN: Soft, nontender, not distended, normoactive bowel sounds, no guarding, no rebound, no masses. No hepatomegaly or splenomegaly. MUSCULOSKELETAL: Normal range of motion at all joints. No bony deformities or tenderness. No CVA tenderness. UPPER EXTREMITIES: 2+ pulses, warm, well-perfused. No cyanosis. No clubbing. Cap refill <2 seconds. No peripheral edema. LOWER EXTREMITIES: 2+ pulses, warm, well-perfused, mildly reduced tactile sensation in medial aspect of R lower limb NEUROLOGICAL: Cranial nerves II-XII intact. Normal speech. Normal gait. PSYCHIATRIC: Cooperative. Good eye contact. Appropriate mood and affect. SKIN: Warm, dry, normal turgor, no rashes or lesions noted. Laboratory Results - last 24 hr 03/01/20 03/01/20 03/01/20 12:00 12:00 12:00 WBC 11.5 H RBC 4.88 Hgb 11.2 L Hct 36.3 MCV 74.3 L MCH 22.9 L MCHC 30.8 L RDW 18.3 H Plt Count 533 H MPV 8.0 Absolute Neuts (auto) 7.2 Neutrophils % 62.1 Lymphocytes % 19.4 Monocytes % 9.8 Eosinophils % 7.3 H Basophils % 1.4 Nucleated RBC % 0 PT with INR 11.90 INR 1.01 PTT (Actin FS) 36.6 H Sodium 136 Potassium 4.7 Chloride 101 Carbon Dioxide 29 Anion Gap 5 L BUN 18.2 H Creatinine 0.8 Est GFR (CKD-EPI)AfAm 118.20 Est GFR (CKD-EPI)NonAf 101.99 Random Glucose 246 H Calcium 7.5 L Total Bilirubin 0.3 AST 19 ALT 16 Alkaline Phosphatase 164 H Total Protein 6.8 Albumin 3.1 L Blood Type Antibody Screen 03/01/20 12:00 WBC RBC Hgb Hct MCV MCH MCHC RDW Plt Count MPV Absolute Neuts (auto) Neutrophils % Lymphocytes % Monocytes % Eosinophils % Basophils % Nucleated RBC % PT with INR INR PTT (Actin FS) Sodium Potassium Chloride Carbon Dioxide Anion Gap BUN Creatinine Est GFR (CKD-EPI)AfAm Est GFR (CKD-EPI)NonAf Random Glucose Calcium Total Bilirubin AST ALT Alkaline Phosphatase Total Protein Albumin Blood Type O NEGATIVE Antibody Screen Negative Active Medications Generic Name Dose Route Start Last Admin Trade Name Freq PRN Reason Stop Dose Admin Fentanyl 50 mcg 03/01/20 21:30 03/01/20 21:40 Sublimaze Injection - IVPUSH 50 mcg Q5M PRN Administration PAIN-PACU ORDER X 4 DOSES ONLY Lactated Ringer's 1,000 mls @ 125 mls/hr 03/01/20 21:30 Lactated Ringers Solution IV ASDIR LINDY Insulin Aspart 1 vial 03/02/20 07:00 Novolog Vial Sliding Scale - SQ ACHS [facility] Protocol Ondansetron HCl 4 mg 03/01/20 21:30 Zofran Injection IVPUSH Q6H PRN NAUSEA AND/OR VOMITING ASSESSMENT/PLAN: 55 year old male with PMH of DM, R femur bone filing (10/06/[address] Hernandez) was referred to the ER by Dr Hernandez for concern for R greater trochanteric I&D for a developing abscess, after patient was found to have worsening swelling and pain in the area. #Trochanteric abscess - Continue to monitor, post-op care as per surgical team #DM II - Currently on Metformin 500mg BID, Canagliflozin 100, Januvia 100, Novolog 10mg TID, and Levemir 20mg HS at home - BGM and Novolog ACHS started for now - EKG, UA ordered - HbA1c ordered for AM - Hold home Metformin, Januvia, and Canagliflozin - Continue Gabapentin for neurologic pain - BGM started, no POC inpatient glucose available, once POC values obtained over the course of the day, will start on Levemir BID and Novolog TIDAC in addition to Novolog ACHS - Total home insulin 50 units per day, will likely require approximately 36mg (9mg Levemir BID with 6mg Novolog TID) in addition to sliding scale, may require titration depending on how quickly patient is able to advance diet post op - Pt has had small sips of water and juice since the surgery, has not passed gas yet. #Dispo - We will continue to follow the patient. Thank you for this consultative opportunity. Visit type - Emergency Visit Emergency Visit: No - New Patient This patient is new to me today: Yes Date on this admission: 03/02/20 - Critical Care Critical Care patient: No ATTENDING PHYSICIAN STATEMENT I saw and evaluated the patient. I reviewed the resident's note and discussed the case with the resident. I agree with the resident's findings and plan as documented. SUBJECTIVE: OBJECTIVE: ASSESSMENT AND PLAN:
--- NOTE | 2020-03-01 22:17 | PN ---
Progress Note (short form) - Note Progress Note: A/P: 55M s/p I&D right superficial hip wound POD #0. No concern for superficial wound communication with right hip joint. -Pain control. -DVT PPx: -Chemical: ASA 81mg PO qD x 6 weeks. -Mechanical: LLE RIDGE's, SCD's. -Incentive spirometry. -f/u post-op TOV (8 hours max). -Post-op antibiotics x 24 hours. -PT/OT/Rehab, OOBTC at least twice daily. -WBAT RLE. -Diet as tolerated. -f/u intra-op wound cultures. -Care as per primary medical team. -Will follow. Larry Hernandez MD (Orthopaedic Surgery).
[2020-03-01] MEDS ORDERED: MAG HYDROX/AL HYDROX/SIMETH 30 ML UNIT-DOSE CUP PO PRN (22:26)
[2020-03-01] MEDS ORDERED: MAGNESIUM HYDROX 2400MG/30ML ORAL SUSPENSION 30 ML CUP PO PRN (22:26)
--- NOTE | 2020-03-01 22:26 | PN ---
Teaching Attending Note Name of Resident: Dru Harper ATTENDING PHYSICIAN STATEMENT I saw and evaluated the patient. I reviewed the resident's note and discussed the case with the resident. I agree with the resident's findings and plan as documented. 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 We are asked to see him for diabetes management. Presurgery patient thought he had progressively worsening abscess to the right greater trochanter - however the surgeon reports a phlegmon was removed. Patient had preop pain, swelling, warmth, and tenderness to his surgical site. He had completed a 7 day course of Amoxicillin without any relief of symptoms. Denies fever, chills, nausea, vomit, chest pain, SOB, cough, dysuria, diarrhea, frequency or urgency. Received Cefazolin 2 gm IV perioperatively. Denies alcohol, tobacco or illicit drug use. No sick contacts or recent travels. Family history is unremarkable. OBJECTIVE: Alert Vital Signs Period Temp Pulse Resp BP Sys/Romano Pulse Ox Last 24 Hr 97.9 F-98.5 F 65-78 16-18 104-139/54-77 96-100 HEENT: No Jaundice, eye redness or discharge, PERRLA, EOMI. Normocephalic, atraumatic. External ears are normal and hearing is grossly intact. No nasal discharge. Neck: Supple, nontender. No palpable adenopathy or thyromegaly. No JVD Chest: Good effort. Clear to auscultation and percussion. Heart: Regular. No S3, rub or murmur Abdomen: Not distended, soft, nontender and no HSM. No rebound or guarding. Normal bowel sounds. Ext: Peripheral pulses intact. Right hip wound dressed. No obvious bleeding. Distal sensory and motor function intact. No leg edema. Skin: Warm and dry. No petechiae, rash or ecchymosis. Neuro: Alert. Oriented x3. CN 2-12 grossly intact. Sensation grossly intact in all four extremities. Psych: Appropriate mood and affect. Good insight. Current Medications Generic Name Dose Route Start Last Admin Trade Name Freq PRN Reason Stop Dose Admin Al Hydroxide/Mg Hydroxide 30 ml 07/01/20 22:26 Mylanta Oral Suspension - PO Q4H PRN DYSPEPSIA Aspirin 81 mg 03/02/20 10:00 Asa - PO DAILY [facility] Fentanyl 50 mcg 03/01/20 21:30 03/01/20 21:40 Sublimaze Injection - IVPUSH 50 mcg Q5M PRN Administration PAIN-PACU ORDER X 4 DOSES ONLY Gabapentin 200 mg 03/02/20 06:00 Neurontin - PO TID [facility] Lactated Ringer's 1,000 mls @ 125 mls/hr 03/01/20 22:30 Lactated Ringers Solution IV 03/02/20 06:00 ASDIR [facility] Cefazolin Sodium 1 gm in 50 mls @ 100 mls/hr 03/02/20 02:00 Ancef 1 Gm Premixed Ivpb - IVPB 03/02/20 14:29 Q6H [facility] Insulin Aspart 1 vial 03/02/20 07:00 Novolog Vial Sliding Scale - SQ ACHS [facility] Protocol Magnesium Hydroxide 30 ml 03/01/20 22:26 Milk Of Magnesia - PO PRN PRN CONSTIPATION Metformin HCl 500 mg 03/02/20 10:00 Glucophage - PO BID [facility] Multivitamins/Minerals/Vitamin C 1 tab 03/02/20 10:00 Tab-A-Vit - PO DAILY [facility] Non-Formulary Medication 100 mg 03/02/20 10:00 Canagliflozin [Invokana] PO DAILY [facility] Non-Formulary Medication 20 unit 03/02/20 22:00 Insulin Aspart [Novolog] SQ HS [facility] Non-Formulary Medication 12 unit 03/02/20 06:00 Insulin Detemir [Levemir Flextouch] SQ TID [facility] Ondansetron HCl 4 mg 03/01/20 22:26 Zofran Injection IVPUSH Q6H PRN NAUSEA Pantoprazole Sodium 40 mg 03/02/20 10:00 Protonix - PO DAILY [facility] Senna/Docusate Sodium 2 tablet 03/02/20 10:00 Pericolace - PO BID [facility] Sitagliptin Phosphate 100 mg 03/02/20 10:00 Januvia - PO DAILY [facility] Home Medications Medication Instructions Recorded Canagliflozin [Invokana] 100 mg PO DAILY 04/10/18 Sitagliptin Phosphate [Januvia] 100 mg PO DAILY 04/10/18 Gabapentin 200 mg PO TID 03/01/20 Insulin Aspart [Novolog] 20 unit SQ HS 03/01/20 Insulin Detemir [Levemir Flextouch] 12 unit SQ TID 03/01/20 Metformin HCl [Glucophage] 500 mg PO BID 03/01/20 Abnormal Lab Results 03/01/20 03/01/20 03/01/20 12:00 12:00 12:00 WBC 11.5 H Hgb 11.2 L MCV 74.3 L MCH 22.9 L MCHC 30.8 L RDW 18.3 H Plt Count 533 H Eosinophils % 7.3 H PTT (Actin FS) 36.6 H Anion Gap 5 L BUN 18.2 H Random Glucose 246 H Calcium 7.5 L Alkaline Phosphatase 164 H Albumin 3.1 L ASSESSMENT AND PLAN: 1. Postop Day #0/Diabetes mellitus -For now, we will hold the home diabetes drugs and implement sliding scale insulin regimen. Provide comprehensive diabetes care with patient teaching and counseling about the importance of adherence to prescribed diabetes regimen, euglycemia, eye care and foot care. Encourage incentive spirometry. Surgical postop care according to the recommendations of the surgeon. Will get EKG and urinalysis. Viral testing for COVID-19 was ordered preop. Patient placed on airborne, droplet and contact isolation. Will continue comprehensive care for all of patients comorbid conditions. 2. Hypoalbuminemia - Will get urine protein/creatinine ratio. May need outpatient ACEI/ARB therapy. Possibly due to combined effects of malnutrition and inflammation associated with comorbid conditions. Will ensure adequate dietary protein intake and also consult bung sewer. Urinalysis pending. 3. Anemia with low MCV - Will do basic anemia work up including serial stool guaiacs, reticulocyte count and iron studies. Refer to GI for outpatient colonoscopy. 4. DVT prophylaxis - SCD, TEDs 5. Advance directives - Full code
[2020-03-02 01:05] VITALS: BMI 29.1
[2020-03-02] MEDS ORDERED: CEFAZOLIN 1 GM/D5W 1 GM/50 ML BAG IVPB SCH (02:00)
[2020-03-02 02:11] LABS: PH,URINE 6.5 (5.0-8.0); URINE APPEARANCE CLEAR; URINE BILIRUBIN NEGATIVE (NEGATIVE); URINE COLOR YELLOW; URINE GLUCOSE (UA) 2+ (NEGATIVE); URINE KETONE NEGATIVE (NEGATIVE); URINE LEUK ESTERASE NEGATIVE (NEGATIVE); URINE NITRITE NEGATIVE (NEGATIVE); URINE PROTEIN NEGATIVE (NEGATIVE); URINE UROBILINOGEN 0.2 mg/dL (0.2-1.0)
[2020-03-02] MEDS ORDERED: DEXTROSE 5%-WATER - 50 ML IVPB ONE ×3 (02:37→13:54)
[2020-03-02] MEDS ORDERED: ceFAZolin SODIUM 1 GM VIAL ONE ×3 (02:37→13:53)
[2020-03-02] MEDS: CEFAZOLIN 1 GM in DEXTROSE 5%-WATER - 50 ML IVPB SCH ×3 (02:39→13:59)
[2020-03-02] MEDS ORDERED: INSULIN (LEVEMIR) 100 UNITS/ML UNITS SQ SCH ×2 (02:45→22:00)
[2020-03-02] MEDS ORDERED: INSULIN DETEMIR 12 UNIT SQ SCH (06:00)
[2020-03-02] MEDS: GABAPENTIN 100 MG CAPSULE PO SCH ×2 (06:21→13:56)
[2020-03-02] MEDS: INSULIN SLIDING SCALE (NOVOLOG) 1 VIAL SQ SCH ×2 (06:23→12:30)
[2020-03-02] MEDS ORDERED: sitaGLIPtin PHOSPHATE 50 MG TABLET PO SCH (07:00)
[2020-03-02] MEDS ORDERED: INSULIN (NOVOLOG) ASPART 100 UNITS/ML 10ML VIAL SQ SCH (07:00)
[2020-03-02 08:05] LABS: HEMATOCRIT 38.1 % (35.4-49); HEMOGLOBIN 11.8 GM/dL (11.7-16.9); MCH 23.1 pg (25.7-33.7); MCHC 31.1 g/dl (32.0-35.9); MEAN CELL VOLUME 74.3 fl (80-96); MEAN PLT VOLUME 8.5 fl (7.5-11.1); PLATELET COUNT 550 K/MM3 (134-434); RBC 5.12 M/mm3 (4.00-5.60); RDW 18.1 % (11.9-15.9); WHITE BLOOD COUNT 7.4 K/mm3 (4.0-10.0)
[2020-03-02 08:09] LABS: IRON SERUM 22 ug/dL (50-175); TOTAL IRON BINDING CAPACITY 260 ug/dL (250-450)
[2020-03-02 08:10] LABS: BLOOD UREA NITROGEN 17.8 mg/dL (7-18); CREATININE 0.8 mg/dL (0.55-1.3); POTASSIUM 4.9 mmol/L (3.5-5.1)
[2020-03-02] MEDS ORDERED: oxyCODONE HCL 5 MG TABLET PO ONE (09:01)
[2020-03-02] MEDS ORDERED: metFORMIN HCL 500 MG TABLET (FP) PO SCH (10:00)
[2020-03-02] MEDS ORDERED: FERROUS SO4 325 MG TABLET (FP) PO SCH (10:00)
[2020-03-02] MEDS ORDERED: MULTIVITAMINS (DAILY MVI) TABLET (FP) PO SCH (10:00)
[2020-03-02] MEDS ORDERED: PATIENT'S OWN MEDICATION (NON-FORMULARY) (Canagliflozin [Invokana] 100 MG) PO SCH (10:00)
[2020-03-02] MEDS ORDERED: SENNOSIDES/DOCUSATE COMBO (SENNA PLUS) TABLET (UD) PO SCH (10:00)
[2020-03-02] MEDS ORDERED: PANTOPRAZOLE 40 MG TABLET PO SCH (10:00)
[2020-03-02] MEDS ORDERED: ASPIRIN COATED 81 MG TABLET.EC PO SCH (10:00)
[2020-03-02] MEDS ORDERED: PT OWN MED DRAWER 7, Y5N ONE (10:11)
[2020-03-02] MEDS ORDERED: oxyCODONE HCL 5 MG TABLET PO PRN (10:13)
--- NOTE | 2020-03-02 10:16 | PN ---
Progress Note (short form) - Note Progress Note: POD #1 s/p I&D Right hip under general anesthesia. Doing well, has pain but had not been restarted on home Rx. Reinitiated oxycodone prn.
--- NOTE | 2020-03-02 11:45 | OP ---
DATE OF OPERATION: DATE OF DICTATION: 03/01/2020 SURGEON: Blake Hernandez MD PREOPERATIVE DIAGNOSIS: Abscess, right greater trochanter. POSTOPERATIVE DIAGNOSIS: Phlegmon, soft tissue, collection not a true abscess, right proximal lateral thigh. OPERATION PERFORMED: 1. Incision and drainage. 2. Biopsy of tissues. OPERATION DETAILS: Patient correctly identified, brought into the operating room. Right lower extremity was prepped in the routine manner with Betadine scrub solution, wiped with alcohol, DuraPrep applied. A window drape applied using 2 split sheets. The abscess was in the original scar. This was opened approximately 10 cm. Thick phlegmonous material encountered. This was a fibrinous-type material. No purulent liquid was actually drained. The entire abscess-like cavity was washed out. All of this material was saved and will be sent to the lab for culture/sensitivity as well as histopathology. Culture sticks taken as well. The wound was thoroughly lavaged with 5 L of saline. Closure over a 1/8-inch Hemovac drain with No. 2-0 nylon Lautenbach sutures and Steri-Strips. A dry dressing applied. Patient tolerated the procedure well. Ancef 2 g were given preoperatively. He will be admitted and depending on drainage will be discharged once the drain is removed. MD HERMINIA Rowland/[id number]
[2020-03-02] MEDS ORDERED: INSULIN (NOVOLOG) ASPART 100 UNITS/ML 10ML VIAL ONE (12:22)
--- NOTE | 2020-03-02 14:05 | EKG ---
Test Reason : Blood Pressure : / mmHG Vent. Rate : 077 BPM Atrial Rate : 077 BPM P-R Int : 160 ms QRS Dur : 084 ms QT Int : 404 ms P-R-T Axes : 062 -56 038 degrees QTc Int : 457 ms NORMAL SINUS RHYTHM POSSIBLE LEFT ATRIAL ENLARGEMENT LEFT ANTERIOR FASCICULAR BLOCK ABNORMAL ECG WHEN COMPARED WITH ECG OF 01-MAR-2020 11:40, NO SIGNIFICANT CHANGE WAS FOUND Confirmed by MOISES JOSEPH, MAXWELL ([id number]) on 03/02/2020 2:05:19 PM Referred By: Confirmed By:MAXWELL DE LEON MD
--- NOTE | 2020-03-02 15:01 | PN ---
Progress Note (short form) - Note Progress Note: POD#1 Feeling well Pain resolved Bandage dry. Drain removed Apyrexial WCC improved ASSESS Improved post I and D Abscess proximolateral thigh PLAN D/C home Augmenten ordered from his pharmacy See in my office 9am [phone]
[2020-03-02 15:31] VITALS: BP 135/66; PULSE 78; TEMP 98
--- NOTE | 2020-03-02 15:42 | PN ---
Physical Exam: SUBJECTIVE: Patient seen and examined OBJECTIVE: Vital Signs Period Temp Pulse Resp BP Sys/Romano Pulse Ox Last 24 Hr 97.9 F-98.3 F 65-78 16-20 104-139/53-77 96-100 GENERAL: The patient is awake, alert, and fully oriented, in no acute distress. HEAD: Normal with no signs of trauma. EYES: PERRL, extraocular movements intact, sclera anicteric, conjunctiva clear. No ptosis. ENT: Ears normal, nares patent, oropharynx clear without exudates, moist mucous membranes. NECK: Trachea midline, full range of motion, supple. LUNGS: Breath sounds equal, clear to auscultation bilaterally, no wheezes, no crackles, no accessory muscle use. HEART: Regular rate and rhythm, S1, S2 without murmur, rub or gallop. ABDOMEN: Soft, nontender, nondistended, normoactive bowel sounds, no guarding, no rebound, no hepatosplenomegaly, no masses. EXTREMITIES: 2+ pulses, warm, well-perfused, no edema. NEUROLOGICAL: Cranial nerves II through XII grossly intact. Normal speech, gait not observed. PSYCH: Normal mood, normal affect. SKIN: Warm, dry, normal turgor, no rashes or lesions noted Laboratory Results - last 24 hr 03/02/20 03/02/20 03/02/20 00:59 02:45 06:00 WBC RBC Hgb Hct MCV MCH MCHC RDW Plt Count MPV Sodium Potassium Chloride Carbon Dioxide Anion Gap BUN Creatinine Est GFR (CKD-EPI)AfAm Est GFR (CKD-EPI)NonAf POC Glucometer 345 Random Glucose Hemoglobin A1c % Calcium Iron TIBC Iron Saturation Unsaturated IBC Triglycerides Cholesterol Total LDL Cholesterol HDL Cholesterol Urine Color Yellow Urine Appearance Clear Urine pH 6.5 Ur Specific [place] 1.021 Urine Protein Negative Urine Glucose (UA) 2+ H Urine Ketones Negative Urine Blood Negative Urine Nitrite Negative Urine Bilirubin Negative Urine Urobilinogen 0.2 Ur Leukocyte Esterase Negative Stool Occult Blood Negative 03/02/20 03/02/20 03/02/20 06:16 06:40 06:40 WBC 7.4 RBC 5.12 Hgb 11.8 Hct 38.1 MCV 74.3 L MCH 23.1 L MCHC 31.1 L RDW 18.1 H Plt Count 550 H MPV 8.5 Sodium 135 L Potassium 4.9 Chloride 103 Carbon Dioxide 26 Anion Gap 7 L BUN 17.8 Creatinine 0.8 Est GFR (CKD-EPI)AfAm 118.20 Est GFR (CKD-EPI)NonAf 101.99 POC Glucometer 266 Random Glucose 284 H Hemoglobin A1c % Calcium 9.0 Iron TIBC Iron Saturation Unsaturated IBC Triglycerides 85 Cholesterol 182 Total LDL Cholesterol 127 H HDL Cholesterol 37 L Urine Color Urine Appearance Urine pH Ur Specific [place] Urine Protein Urine Glucose (UA) Urine Ketones Urine Blood Urine Nitrite Urine Bilirubin Urine Urobilinogen Ur Leukocyte Esterase Stool Occult Blood 03/02/20 03/02/20 03/02/20 06:40 06:40 12:18 WBC RBC Hgb Hct MCV MCH MCHC RDW Plt Count MPV Sodium Potassium Chloride Carbon Dioxide Anion Gap BUN Creatinine Est GFR (CKD-EPI)AfAm Est GFR (CKD-EPI)NonAf POC Glucometer 197 Random Glucose Hemoglobin A1c % 10.4 H Calcium Iron 22 L TIBC 260 Iron Saturation 8 L Unsaturated IBC 238 Triglycerides Cholesterol Total LDL Cholesterol HDL Cholesterol Urine Color Urine Appearance Urine pH Ur Specific [place] Urine Protein Urine Glucose (UA) Urine Ketones Urine Blood Urine Nitrite Urine Bilirubin Urine Urobilinogen Ur Leukocyte Esterase Stool Occult Blood Active Medications Generic Name Dose Route Start Last Admin Trade Name Freq PRN Reason Stop Dose Admin Al Hydroxide/Mg Hydroxide 30 ml 03/01/20 22:26 Mylanta Oral Suspension - PO Q4H PRN DYSPEPSIA Aspirin 81 mg 03/02/20 10:00 03/02/20 09:55 Ecotrin - PO 81 mg DAILY [facility]INDY Administration Ferrous Sulfate 325 mg 03/02/20 10:00 03/02/20 09:56 Feosol - PO 325 mg DAILY [facility]INDY Administration Gabapentin 200 mg 03/02/20 06:00 03/02/20 13:56 Neurontin - PO 200 mg TID [facility]INDY Administration Insulin Aspart 1 vial 03/02/20 07:00 03/02/20 12:30 Novolog Vial Sliding Scale - SQ 2 units ACHS [facility]Y Administration Protocol Insulin Detemir 10 units 03/02/20 22:00 Levemir Vial SQ BID@0700,2200 [facility] Magnesium Hydroxide 30 ml 03/01/20 22:26 Milk Of Magnesia - PO PRN PRN CONSTIPATION Multivitamins/Minerals/Vitamin C 1 tab 03/02/20 10:00 03/02/20 09:55 Tab-A-Vit - PO 1 tab DAILY [facility] Administration Ondansetron HCl 4 mg 03/01/20 22:26 Zofran Injection IVPUSH Q6H PRN NAUSEA Oxycodone HCl 10 mg 03/02/20 10:13 03/02/20 13:56 Roxicodone - PO 10 mg Q3H PRN Administration PAIN LEVEL 6-10 Pantoprazole Sodium 40 mg 03/02/20 10:00 03/02/20 09:55 Protonix - PO 40 mg DAILY [facility] Administration Senna/Docusate Sodium 2 tablet 03/02/20 10:00 03/02/20 09:56 Pericolace - PO 2 tablet BID LINDY Administration ASSESSMENT/PLAN: ATTENDING PHYSICIAN STATEMENT I saw and evaluated the patient. I reviewed the resident's note and discussed the case with the resident. I agree with the resident's findings and plan as documented. SUBJECTIVE: OBJECTIVE: ASSESSMENT AND PLAN:
--- NOTE | 2020-03-02 16:12 | PN ---
Teaching Attending Note Name of Resident: Raiza Hilliard ATTENDING PHYSICIAN STATEMENT I saw and evaluated the patient. I reviewed the resident's note and discussed the case with the resident. I agree with the resident's findings and plan as documented. SUBJECTIVE: Patient seen and examined at bedside, s/p drainage of L spine abscess, tolerated procedure well, denies complaints. VSS. OBJECTIVE: GA comfortable, AAox3, speaking in full sentences HEENT NC/AT, EOMI, neck supple CHest CTAb, no crackles or wheezing CVS S1, s2+, RRR Abd Soft, NT, ND, BS+ Ext No LE edema, moves all 4 ext., L spine drain w/ bloody drainage Vital Signs - 24 hr 03/01/20 03/01/20 03/01/20 16:17 18:07 18:55 Temperature 98.3 F 97.9 F 98.3 F Pulse Rate 78 Pulse Rate [ 73 68 Right Radial] Respiratory 20 Rate Blood Pressure 114/66 Blood Pressure 121/63 106/54 L [Left Arm] O2 Sat by Pulse 96 97 Oximetry (%) 03/01/20 03/01/20 03/01/20 19:39 21:25 21:40 Temperature 98.3 F Pulse Rate 78 65 Pulse Rate [ 69 Right Radial] Respiratory 18 18 16 Rate Blood Pressure 139/77 128/74 Blood Pressure 106/62 [Left Arm] O2 Sat by Pulse 98 99 99 Oximetry (%) 03/01/20 03/01/20 03/01/20 21:55 22:10 23:45 Temperature 98.3 F Pulse Rate 73 78 Pulse Rate [ Right Radial] Respiratory 16 16 20 Rate Blood Pressure 104/59 L 106/57 L Blood Pressure [Left Arm] O2 Sat by Pulse 100 100 96 Oximetry (%) 03/02/20 03/02/20 03/02/20 01:51 06:00 09:00 Temperature 98.1 F 98.2 F Pulse Rate 65 71 Pulse Rate [ Right Radial] Respiratory 18 18 Rate Blood Pressure 130/57 L 117/53 L Blood Pressure [Left Arm] O2 Sat by Pulse 98 Oximetry (%) 03/02/20 03/02/20 10:00 14:00 Temperature 98.2 F 98 F Pulse Rate 76 78 Pulse Rate [ Right Radial] Respiratory 18 18 Rate Blood Pressure 116/58 L 135/66 Blood Pressure [Left Arm] O2 Sat by Pulse Oximetry (%) Microbiology 03/01/20 21:30 Hip - Right Gram Stain - Final 03/01/20 21:30 Hip - Right Gram Stain - Final Laboratory Results - last 24 hr 03/02/20 03/02/20 03/02/20 00:59 02:45 06:00 WBC RBC Hgb Hct MCV MCH MCHC RDW Plt Count MPV Sodium Potassium Chloride Carbon Dioxide Anion Gap BUN Creatinine Est GFR (CKD-EPI)AfAm Est GFR (CKD-EPI)NonAf POC Glucometer 345 Random Glucose Hemoglobin A1c % Calcium Iron TIBC Iron Saturation Unsaturated IBC Triglycerides Cholesterol Total LDL Cholesterol HDL Cholesterol Urine Color Yellow Urine Appearance Clear Urine pH 6.5 Ur Specific [place] 1.021 Urine Protein Negative Urine Glucose (UA) 2+ H Urine Ketones Negative Urine Blood Negative Urine Nitrite Negative Urine Bilirubin Negative Urine Urobilinogen 0.2 Ur Leukocyte Esterase Negative Stool Occult Blood Negative 03/02/20 03/02/20 03/02/20 06:16 06:40 06:40 WBC 7.4 RBC 5.12 Hgb 11.8 Hct 38.1 MCV 74.3 L MCH 23.1 L MCHC 31.1 L RDW 18.1 H Plt Count 550 H MPV 8.5 Sodium 135 L Potassium 4.9 Chloride 103 Carbon Dioxide 26 Anion Gap 7 L BUN 17.8 Creatinine 0.8 Est GFR (CKD-EPI)AfAm 118.20 Est GFR (CKD-EPI)NonAf 101.99 POC Glucometer 266 Random Glucose 284 H Hemoglobin A1c % Calcium 9.0 Iron TIBC Iron Saturation Unsaturated IBC Triglycerides 85 Cholesterol 182 Total LDL Cholesterol 127 H HDL Cholesterol 37 L Urine Color Urine Appearance Urine pH Ur Specific [place] Urine Protein Urine Glucose (UA) Urine Ketones Urine Blood Urine Nitrite Urine Bilirubin Urine Urobilinogen Ur Leukocyte Esterase Stool Occult Blood 03/02/20 03/02/20 03/02/20 06:40 06:40 12:18 WBC RBC Hgb Hct MCV MCH MCHC RDW Plt Count MPV Sodium Potassium Chloride Carbon Dioxide Anion Gap BUN Creatinine Est GFR (CKD-EPI)AfAm Est GFR (CKD-EPI)NonAf POC Glucometer 197 Random Glucose Hemoglobin A1c % 10.4 H Calcium Iron 22 L TIBC 260 Iron Saturation 8 L Unsaturated IBC 238 Triglycerides Cholesterol Total LDL Cholesterol HDL Cholesterol Urine Color Urine Appearance Urine pH Ur Specific [place] Urine Protein Urine Glucose (UA) Urine Ketones Urine Blood Urine Nitrite Urine Bilirubin Urine Urobilinogen Ur Leukocyte Esterase Stool Occult Blood Home Medications Medication Instructions Recorded Canagliflozin [Invokana] 100 mg PO DAILY 04/10/18 Sitagliptin Phosphate [Januvia] 100 mg PO DAILY 04/10/18 Gabapentin 200 mg PO TID 03/01/20 Insulin Aspart [Novolog] 20 unit SQ HS 03/01/20 Insulin Detemir [Levemir Flextouch] 12 unit SQ TID 03/01/20 Metformin HCl [Glucophage] 500 mg PO BID 03/01/20 Current Medications Generic Name Dose Route Start Last Admin Trade Name Freq PRN Reason Stop Dose Admin Al Hydroxide/Mg Hydroxide 30 ml 03/01/20 22:26 Mylanta Oral Suspension - PO Q4H PRN DYSPEPSIA Aspirin 81 mg 03/02/20 10:00 03/02/20 09:55 Ecotrin - PO 81 mg DAILY LINDY Administration Ferrous Sulfate 325 mg 03/02/20 10:00 03/02/20 09:56 Feosol - PO 325 mg DAILY LINDY Administration Gabapentin 200 mg 03/02/20 06:00 03/02/20 13:56 Neurontin - PO 200 mg TID LINDY Administration Insulin Aspart 1 vial 03/02/20 07:00 03/02/20 12:30 Novolog Vial Sliding Scale - SQ 2 units ACHS LINDY Administration Protocol Insulin Detemir 10 units 03/02/20 22:00 Levemir Vial SQ BID@0700,2200 LINDY Magnesium Hydroxide 30 ml 03/01/20 22:26 Milk Of Magnesia - PO PRN PRN CONSTIPATION Multivitamins/Minerals/Vitamin C 1 tab 03/02/20 10:00 03/02/20 09:55 Tab-A-Vit - PO 1 tab DAILY LINDY Administration Ondansetron HCl 4 mg 03/01/20 22:26 Zofran Injection IVPUSH Q6H PRN NAUSEA Oxycodone HCl 10 mg 03/02/20 10:13 03/02/20 13:56 Roxicodone - PO 10 mg Q3H PRN Administration PAIN LEVEL 6-10 Pantoprazole Sodium 40 mg 03/02/20 10:00 03/02/20 09:55 Protonix - PO 40 mg DAILY LINDY Administration Senna/Docusate Sodium 2 tablet 03/02/20 10:00 03/02/20 09:56 Pericolace - PO 2 tablet BID LINDY Administration ASSESSMENT AND PLAN: 55 M
[2020-03-02] MEDS ORDERED: PIPERACILLIN/TAZOB 3.375 GM 3.375 GM in DEXTROSE 5%-WATER - 50 ML IVPB ONE (16:13)
[2020-03-02] MEDS ORDERED: INSULIN ASPART 20 UNIT SQ SCH (22:00)
[2020-03-03] MEDS ORDERED: AMOX TR/POT CLAV 875MG/125MG TABLETS (FP) PO SCH (10:00)
--- NOTE | 2020-03-06 17:56 | PATH ---
Surgical Pathology Report Patient Name: MARC SALMON [facility]. Rec. #: [id number] /Age/Gender: 1965 (Age: 55) / M Account: [id number] Location: AMBULATORY SURG Taken: 03/01/2020 Received: 03/02/2020 Reported: 03/06/2020 Physicians: Blake Hernandez M.D. Specimen(s) Received RIGHT TROCHANTER ABSCESS Clinical History Right hip abscess Final Diagnosis RIGHT TROCHANTER ABSCESS, DEBRIDEMENT: MIXTURE OF ACUTE INFLAMMATORY AND FIBRINOUS EXUDATE. Electronically Signed Aden Woodson M.D. Gross Description Received in formalin labeled "right greater trochanter abscess," is a 6.0 x 4.5 x 2.0 cm aggregate of lombardi-brown, necrotic soft tissue fragments. A termite control service representative portion is submitted in one cassette. /03/02/202003/02/2020
== END 2020-03-02 16:21 | disposition home or self-care (01) ==
LOC: JOR 11:28 → JASUSAT 14:01 → J2C 14:02 → UNDOADMIN 14:02 → J2C 18:25 → J5S 23:21 → J2C 23:21 → J5S 23:21 → JASUSAT 03-02 16:21
PROVIDERS: ATTEND Orthopaedic Surgery Orthopaedic Surgery of the Spine
PROC: 0J9M0ZZ Drainage of Left Upper Leg Subcutaneous Tissue and Fascia, Open Approach (ICD-10-PCS; principal; 2020-03-01 15:30)
DX: L02.415 Cutaneous abscess of right lower limb (principal)
CPT/HCPCS: 36415; 71046-TC-FY; 80048; 80053; 80061; 81003; 82272; 82962; 83036; 83540; 83550; 83721; 85025; 85027; 85610; 85730; 86850; 86900; 86901; 87070; 87075; 87086; 87186; 87205; 88304-TC; 93005; 93010; 94760; 97116-GP; 97161-GP; 99285-25; J0131; U0003

== ENCOUNTER 2020-10-04 05:52 | Inpatient (IN) | payer OTHER ==
[2020-10-02 09:01] VITALS: BMI 27.4
[2020-10-04] MEDS ORDERED: LOCK ITEM NR ONE (06:53)
[2020-10-04] MEDS ORDERED: PROPOFOL 20 ML ONE (08:05)
[2020-10-04] MEDS ORDERED: MIDAZOLAM HCL 2 MG/2 ML SINGLE DOSE VIAL ONE ×4 (08:05→09:54)
[2020-10-04] MEDS ORDERED: SUCCINYLCHOLINE CHLORIDE 200 MG/10 ML SYRINGE ONE (08:05)
[2020-10-04] MEDS ORDERED: EPHEDRINE SULFATE/0.9% NACL/PF 50 MG/10 ML SYRINGE NR ONE (08:22)
[2020-10-04] MEDS ORDERED: BENZOIN/ALOE VERA/STORAX/TOLU 58 ML BOTTLE ONE (09:45)
[2020-10-04] MEDS ORDERED: ceFAZolin SODIUM 1 GM VIAL IVPB ONE (09:50)
[2020-10-04] MEDS ORDERED: VANCOMYCIN 1,000 MG VIAL (RESTRICTED TO ID ONLY) IVPB ONE (09:51)
[2020-10-04] MEDS ORDERED: VANCOMYCIN 1,000 MG VIAL (RESTRICTED TO ID ONLY) ONE (10:08)
[2020-10-04] MEDS ORDERED: ceFAZolin SODIUM 1 GM VIAL ONE (10:08)
[2020-10-04] MEDS ORDERED: TRANEXAMIC ACID 1000 MG/10 ML VIAL ONE (10:08)
[2020-10-04] MEDS ORDERED: MAGNESIUM HYDROX 2400MG/30ML ORAL SUSPENSION 30 ML CUP PO PRN (11:04)
[2020-10-04] MEDS ORDERED: ONDANSETRON 4 MG/2 ML VIAL IVPUSH PRN ×2 (11:04→11:14)
[2020-10-04] MEDS ORDERED: MAG HYDROX/AL HYDROX/SIMETH 30 ML UNIT-DOSE CUP PO PRN (11:04)
[2020-10-04] MEDS ORDERED: LACTATED RINGERS SOLUTION 1,000 ML IV SCH ×2 (11:15)
[2020-10-04 11:53] LABS: EOS % 1.4 % (0-4.5); HEMOGLOBIN 9.9 GM/dl (11.7-16.9); LYMPH % 17.1 % (8-40); MCH 21.1 pg (25.7-33.7); MCHC 30.9 g/dl (32.0-35.9); MEAN CELL VOLUME 68.5 fl (80-96); MEAN PLT VOLUME 7.9 fl (7.5-11.1); MONO % 4.4 % (3.8-10.2); NEUT % 76.1 % (42.8-82.8); PLATELET COUNT 419 K/MM3 (134-434); RBC 4.66 M/mm3 (4.00-5.60); RDW 16.6 % (11.9-15.9); WHITE BLOOD COUNT 13.3 K/mm3 (4.0-10.8)
[2020-10-04 11:57] LABS: ADD RBC MORPHOLOGY YES
[2020-10-04 13:21] LABS: ANISOCYTOSIS 1+; PLATELET ESTIMATE ADEQUATE
[2020-10-04] MEDS: GABAPENTIN 100 MG CAPSULE PO SCH ×2 (16:00→21:27)
[2020-10-04] MEDS: CEFAZOLIN 2 GM/D5W 2 GM/50 ML ML IVPB SCH ×2 (16:11→21:28)
[2020-10-04] MEDS ORDERED: KETOROLAC TROMETHAMINE 30 MG/1 ML VIAL IVPUSH SCH (16:30)
[2020-10-04] MEDS ORDERED: metFORMIN HCL 500 MG TABLET (FP) PO SCH (16:30)
[2020-10-04 18:17] LABS: BASO % 0.6 % (0-2.0); EOS % 1.5 % (0-4.5); HEMATOCRIT 33.4 % (35.4-49); HEMOGLOBIN 10.2 GM/dl (11.7-16.9); MCH 20.7 pg (25.7-33.7); MCHC 30.4 g/dl (32.0-35.9); MEAN CELL VOLUME 67.9 fl (80-96); MEAN PLT VOLUME 7.8 fl (7.5-11.1); MONO % 6.4 % (3.8-10.2); NEUT % 80.5 % (42.8-82.8); PLATELET COUNT 478 K/MM3 (134-434); RBC 4.92 M/mm3 (4.00-5.60); RDW 16.5 % (11.9-15.9); WHITE BLOOD COUNT 14.7 K/mm3 (4.0-10.8)
[2020-10-04] MEDS: INSULIN (NOVOLOG) ASPART 100 UNITS/ML 10ML VIAL SQ SCH ×2 (18:38→21:28)
[2020-10-04] MEDS: INDOMETHACIN 25 MG CAPSULE PO SCH (21:27)
[2020-10-04] MEDS: ASPIRIN COATED 81 MG TABLET.EC PO SCH (21:27)
[2020-10-04] MEDS: SENNOSIDES/DOCUSATE COMBO (SENNA PLUS) TABLET (UD) PO SCH (21:28)
[2020-10-04] MEDS: INSULIN (LEVEMIR) 100 UNITS/ML UNITS SQ SCH (21:30)
[2020-10-04] MEDS ORDERED: PATIENT'S OWN MEDICATION (NON-FORMULARY) (Insulin Aspart [Novolog] 100 UNIT/ML Cartridge) SQ SCH (22:00)
[2020-10-04] MEDS ORDERED: PATIENT'S OWN MEDICATION (NON-FORMULARY) (Oxycodone Hcl [Roxicodone] 15 MG Tablet) PO SCH (22:00)
[2020-10-04] MEDS ORDERED: oxyCODONE HCL 5 MG TABLET PO SCH (22:00)
[2020-10-05] MEDS ORDERED: KETOROLAC TROMETHAMINE 30 MG/1 ML VIAL IVPUSH SCH (00:01)
[2020-10-05] MEDS: oxyCODONE HCL 5 MG TABLET PO PRN ×5 (00:30→22:06)
[2020-10-05] MEDS: CEFAZOLIN 2 GM/D5W 2 GM/50 ML ML IVPB SCH (02:59)
[2020-10-05] MEDS: INDOMETHACIN 25 MG CAPSULE PO SCH ×3 (06:30→21:50)
[2020-10-05] MEDS: GABAPENTIN 100 MG CAPSULE PO SCH ×3 (06:30→21:50)
[2020-10-05] MEDS: INSULIN (NOVOLOG) ASPART 100 UNITS/ML 10ML VIAL SQ SCH ×4 (06:31→21:53)
[2020-10-05 08:27] LABS: HEMATOCRIT 33.3 % (35.4-49); HEMOGLOBIN 10.2 GM/dl (11.7-16.9); MCH 21.1 pg (25.7-33.7); MCHC 30.6 g/dl (32.0-35.9); MEAN CELL VOLUME 68.8 fl (80-96); MEAN PLT VOLUME 7.8 fl (7.5-11.1); PLATELET COUNT 410 K/MM3 (134-434); RBC 4.84 M/mm3 (4.00-5.60); RDW 16.5 % (11.9-15.9); WHITE BLOOD COUNT 15.1 K/mm3 (4.0-10.8)
[2020-10-05] MEDS: ASPIRIN COATED 81 MG TABLET.EC PO SCH ×2 (09:49→21:55)
[2020-10-05] MEDS: SENNOSIDES/DOCUSATE COMBO (SENNA PLUS) TABLET (UD) PO SCH ×2 (09:50→21:50)
[2020-10-05] MEDS: PANTOPRAZOLE 40 MG TABLET PO SCH (09:50)
[2020-10-05] MEDS ORDERED: CANAGLIFLOZIN 100 MG PO SCH (10:00)
[2020-10-05] MEDS: INSULIN (LEVEMIR) 100 UNITS/ML UNITS SQ SCH (21:54)
[2020-10-05] MEDS: ZOLPIDEM TARTRATE 5 MG TABLET PO PRN (22:07)
[2020-10-06] MEDS: GABAPENTIN 100 MG CAPSULE PO SCH ×3 (06:39→21:37)
[2020-10-06] MEDS: INDOMETHACIN 25 MG CAPSULE PO SCH ×3 (06:39→21:36)
[2020-10-06] MEDS: INSULIN (NOVOLOG) ASPART 100 UNITS/ML 10ML VIAL SQ SCH ×4 (06:42→21:37)
[2020-10-06] MEDS: SENNOSIDES/DOCUSATE COMBO (SENNA PLUS) TABLET (UD) PO SCH ×2 (09:27→21:38)
[2020-10-06] MEDS: oxyCODONE HCL 5 MG TABLET PO PRN ×3 (09:27→20:20)
[2020-10-06] MEDS: ASPIRIN COATED 81 MG TABLET.EC PO SCH ×2 (09:28→21:36)
[2020-10-06] MEDS: PANTOPRAZOLE 40 MG TABLET PO SCH (09:28)
[2020-10-06] MEDS ORDERED: ACETAMINOPHEN 325 MG TABLET (FP) PO PRN (14:45)
[2020-10-06] MEDS ORDERED: ACETAMINOPHEN 325 MG TABLET (FP) PO ONE (15:00)
[2020-10-06] MEDS ORDERED: PIPERACILLIN/TAZOB 3.375 GM 3.375 GM in DEXTROSE 5%-WATER - 50 ML IVPB SCH (15:15)
[2020-10-06] MEDS ORDERED: PIPERACILLIN/TAZOBACTAM 3.375 GM VIAL IVPB ONE ×2 (15:29→18:28)
[2020-10-06] MEDS ORDERED: DEXTROSE 5%-WATER - 50 ML IVPB ONE (15:29)
[2020-10-06] MEDS: PIPERACILLIN/TAZOB 3.375 GM 3.375 GM in SODIUM CHLORIDE 50 ML IVPB SCH (18:00)
[2020-10-06] MEDS ORDERED: SODIUM CHLORIDE 50 ML IVPB ONE (18:28)
[2020-10-06] MEDS: INSULIN (LEVEMIR) 100 UNITS/ML UNITS SQ SCH (21:36)
[2020-10-06] MEDS: ZOLPIDEM TARTRATE 5 MG TABLET PO PRN (21:38)
[2020-10-07] MEDS ORDERED: PIPERACILLIN/TAZOBACTAM 3.375 GM VIAL IVPB ONE ×3 (01:15→18:10)
[2020-10-07] MEDS ORDERED: SODIUM CHLORIDE 50 ML IVPB ONE ×3 (01:16→18:10)
[2020-10-07] MEDS: PIPERACILLIN/TAZOB 3.375 GM 3.375 GM in SODIUM CHLORIDE 50 ML IVPB SCH ×3 (01:26→18:49)
[2020-10-07] MEDS: INSULIN (NOVOLOG) ASPART 100 UNITS/ML 10ML VIAL SQ SCH ×4 (06:30→21:16)
[2020-10-07] MEDS: INDOMETHACIN 25 MG CAPSULE PO SCH ×3 (06:31→21:18)
[2020-10-07] MEDS: GABAPENTIN 100 MG CAPSULE PO SCH ×3 (06:31→21:18)
[2020-10-07] MEDS: SENNOSIDES/DOCUSATE COMBO (SENNA PLUS) TABLET (UD) PO SCH ×2 (09:52→21:23)
[2020-10-07] MEDS: ASPIRIN COATED 81 MG TABLET.EC PO SCH ×2 (10:04→21:18)
[2020-10-07] MEDS: PANTOPRAZOLE 40 MG TABLET PO SCH (10:04)
[2020-10-07] MEDS: oxyCODONE HCL 5 MG TABLET PO PRN (16:24)
[2020-10-07] MEDS: INSULIN (LEVEMIR) 100 UNITS/ML UNITS SQ SCH (21:18)
[2020-10-07] MEDS: ZOLPIDEM TARTRATE 5 MG TABLET PO PRN (21:22)
[2020-10-08] MEDS ORDERED: SODIUM CHLORIDE 50 ML IVPB ONE ×3 (00:23→18:28)
[2020-10-08] MEDS ORDERED: PIPERACILLIN/TAZOBACTAM 3.375 GM VIAL IVPB ONE ×3 (00:23→18:28)
[2020-10-08] MEDS: PIPERACILLIN/TAZOB 3.375 GM 3.375 GM in SODIUM CHLORIDE 50 ML IVPB SCH ×3 (01:03→19:09)
[2020-10-08] MEDS: GABAPENTIN 100 MG CAPSULE PO SCH ×3 (06:10→21:13)
[2020-10-08] MEDS: INDOMETHACIN 25 MG CAPSULE PO SCH ×3 (06:10→21:13)
[2020-10-08] MEDS: INSULIN (NOVOLOG) ASPART 100 UNITS/ML 10ML VIAL SQ SCH ×4 (06:10→21:21)
[2020-10-08] MEDS: PANTOPRAZOLE 40 MG TABLET PO SCH (09:58)
[2020-10-08] MEDS: ASPIRIN COATED 81 MG TABLET.EC PO SCH ×2 (09:59→21:13)
[2020-10-08] MEDS: SENNOSIDES/DOCUSATE COMBO (SENNA PLUS) TABLET (UD) PO SCH ×2 (09:59→21:43)
[2020-10-08 10:37] LABS: BASO % 0.8 % (0-2.0); EOS % 3.9 % (0-4.5); HEMATOCRIT 33.7 % (35.4-49); HEMOGLOBIN 10.6 GM/dl (11.7-16.9); LYMPH % 13.7 % (8-40); MCH 21.6 pg (25.7-33.7); MCHC 31.4 g/dl (32.0-35.9); MEAN CELL VOLUME 68.7 fl (80-96); MEAN PLT VOLUME 7.8 fl (7.5-11.1); MONO % 4.1 % (3.8-10.2); NEUT % 77.5 % (42.8-82.8); PLATELET COUNT 524 K/MM3 (134-434); RDW 16.6 % (11.9-15.9); WHITE BLOOD COUNT 11.8 K/mm3 (4.0-10.8)
[2020-10-08 10:41] LABS: ADD RBC MORPHOLOGY YES
[2020-10-08 10:57] LABS: BILIRUBIN,TOTAL 0.4 mg/dl (0.2-1); CALCIUM 8.8 mg/dl (8.5-10); CREATININE 0.6 mg/dl (0.55-1.3); MAGNESIUM 1.8 mg/dL (1.8-2.4); POTASSIUM 4.4 mmol/L (3.5-5.1); TOT PROT 6.4 g/dl (6.4-8.2)
[2020-10-08 11:45] LABS: ANISOCYTOSIS 1+
[2020-10-08 11:46] LABS: OVALOCYTE 2+; PLATELET ESTIMATE INCREASED
[2020-10-08] MEDS: oxyCODONE HCL 5 MG TABLET PO PRN ×2 (13:33→20:01)
[2020-10-08] MEDS: INSULIN (LEVEMIR) 100 UNITS/ML UNITS SQ SCH (21:20)
[2020-10-08] MEDS ORDERED: ZOLPIDEM TARTRATE 5 MG TABLET PO PRN (21:45)
[2020-10-09] MEDS ORDERED: PIPERACILLIN/TAZOBACTAM 3.375 GM VIAL IVPB ONE (02:01)
[2020-10-09] MEDS ORDERED: SODIUM CHLORIDE 50 ML IVPB ONE (02:01)
[2020-10-09] MEDS: PIPERACILLIN/TAZOB 3.375 GM 3.375 GM in SODIUM CHLORIDE 50 ML IVPB SCH (02:06)
[2020-10-09] MEDS: oxyCODONE HCL 5 MG TABLET PO PRN ×2 (02:58→09:11)
[2020-10-09] MEDS: INDOMETHACIN 25 MG CAPSULE PO SCH ×2 (06:58→14:54)
[2020-10-09] MEDS: GABAPENTIN 100 MG CAPSULE PO SCH ×2 (06:59→14:54)
[2020-10-09] MEDS: INSULIN (NOVOLOG) ASPART 100 UNITS/ML 10ML VIAL SQ SCH ×6 (06:59→13:30)
[2020-10-09] MEDS: SENNOSIDES/DOCUSATE COMBO (SENNA PLUS) TABLET (UD) PO SCH (09:11)
[2020-10-09] MEDS: PANTOPRAZOLE 40 MG TABLET PO SCH (09:12)
[2020-10-09] MEDS ORDERED: INSULIN SLIDING SCALE (NOVOLOG) 1 VIAL SQ ONE (09:42)
[2020-10-09] MEDS: ASPIRIN COATED 81 MG TABLET.EC PO SCH (12:06)
[2020-10-09 14:00] VITALS: BP 135/61; PULSE 70; TEMP 98.2
== END 2020-10-09 14:52 | disposition home or self-care (01) | DRG 464 ==
LOC: FM/S 05:52 → UNDODISIN 13:30
PROVIDERS: ADMIT Orthopaedic Surgery Orthopaedic Surgery of the Spine; ATTEND Nurse Practitioner Acute Care
PROC: 0JBL0ZZ Excision of Right Upper Leg Subcutaneous Tissue and Fascia, Open Approach (ICD-10-PCS; 2020-10-04)
PROC: 0MTL0ZZ Resection of Right Hip Bursa and Ligament, Open Approach (ICD-10-PCS; 2020-10-04)
PROC: 0QB20ZX Excision of Right Pelvic Bone, Open Approach, Diagnostic (ICD-10-PCS; 2020-10-04)
PROC: 0M9 Bursae and Ligaments, Drainage (ICD-10-PCS; 2020-10-04)
PROC: 0JNL0ZZ Release Right Upper Leg Subcutaneous Tissue and Fascia, Open Approach (ICD-10-PCS; principal; 2020-10-04 08:59)
PROC: B518ZZA Fluoroscopy of Superior Vena Cava, Guidance (ICD-10-PCS; 2020-10-09)
PROC: 02HV33Z Insertion of Infusion Device into Superior Vena Cava, Percutaneous Approach (ICD-10-PCS; 2020-10-09)
DX: M61.551 Other ossification of muscle, right thigh (principal); M86.8X8 Other osteomyelitis, other site; M61.58 Other ossification of muscle, other site; E11.69 Type 2 diabetes mellitus with other specified complication; B95.7 Other staphylococcus as the cause of diseases classified elsewhere; M61.9 Calcification and ossification of muscle, unspecified
CPT/HCPCS: 36415; 36569; 73502-TC-RT-FY; 77001-TC-FY; 80053; 82962; 83735; 85025; 85027; 86850; 86900; 86901; 86922; 87070; 87075; 87102; 87116; 87186; 87205; 87206; 87210; 88305-TC; 88307-TC; 94760; 97010-GP; 97116-GP; 97162-GP; C1751